=== PATIENT | female | born 1955 | race Caucasian/White ===

== ENCOUNTER → 2017-08-15 12:17 | Outpatient (CLI) | payer MEDICARE, OTHER, SELFPAY ==
[2017-08-15 12:55] LABS: BUN Creatinine Ratio 22.5 (6-22); Blood Urea Nitrogen 27 mg/dL (7-17); Calcium 9.2 mg/dL (8.4-10.2); Carbon Dioxide 27 mmol/L (22-32); Chloride 100 mmol/L (98-107); Estimated Glomerular Filt Rate 45.2 mL/min (>60); Glucose 189 mg/dL (80-110); HEMOLYSIS < 15 (0-50); Sodium 138 mmol/L (137-145)
--- NOTE | 2017-08-15 13:20 | DI.CT.S_ITS ---
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 TECHNIQUE: Optional 5 mm thick noncontrast images acquired from the diaphragm to the iliac crests. After the administration of intravenous contrast, 5 mm thick images again acquired from the diaphragm to the iliac crests in the arterial and urographic phases. 5 mm thick coronal and sagittal reformats were then acquired. For radiation dose reduction, the following was used: automated exposure control, adjustment of mA and/or kV according to patient size. COMPARISON: Outside Film, CT, CT ABDOMEN PELVIS WITH CONTRAST, 07/02/2017, 14:13. [facility], CT, ABDOMEN W&WO CONTRAST, 10/05/2016, 11:14. [facility], CT, ABDOMEN/PELVIS WITH CONTRAST, 03/29/2016, 13:17. [facility], CT, ABDOMEN/PELVIS WITH CONTRAST, 11/20/2012, 13:39. FINDINGS: Image quality: Metallic streak artifact from lumbar spine fixation hardware obscures adjacent bony and soft tissue structures. Lung bases: Lung bases are clear. Heart size is normal. Genitourinary: Both kidneys are normal in size, without hydronephrosis. 2 mm nonobstructing left renal stone is again noted. 1.9 cm exophytic left lateral renal cortical simple cyst is again noted, as well as 1.2 cm posterior exophytic right renal cortical cyst. On postcontrast images, amorphous nonenhancing irregular scar at the site of previous right superomedial renal mass is unchanged in appearance. Other solid organs: Liver is normal in size and enhancement. Gallbladder contains several small calcified gallstones. Biliary system is non dilated. Pancreas enhances normally. Spleen is normal in size and enhancement. No adrenal nodules. Peritoneum and bowel: Unenhanced bowel loops are normal in wall thickness and caliber. There is pancolonic diverticulosis. No free fluid or air. Nodes and vessels: No retroperitoneal or mesenteric adenopathy by size criteria. Aorta and inferior vena cava are normal in caliber. Bones: No suspicious bony lesions. No vertebral body compression fractures. Patient is status post L2-S1 bilateral posterior fixation and fusion, as well as multilevel lumbar spine laminectomies, L2-L3 discectomy with interbody fusion. There is grade one L4-L5 spondylolisthesis. Miscellaneous: There is small fat-containing periumbilical ventral hernia as before. IMPRESSION: 1. No findings to suggest local tumor recurrence at the site of superomedial right renal tumor ablation. 2. Several nonenhancing bilateral renal cortical simple cysts again noted, as well as nonobstructing 2 mm left renal stone. 3. [place] colonic diverticulosis. 4. Several small calcified gallstones again noted. 5. Small fat-containing periumbilical ventral hernia as before. Dictated by: Adan Aguiar M.D. on 08/15/2017 at 14:21 Approved by: Adan Aguiar M.D. on 08/15/2017 at 14:48
== END ==
PROVIDERS: PCP Internal Medicine; Visit Provider Urology
DX: N28.89 Other specified disorders of kidney and ureter (principal)
CPT/HCPCS: 36415; 74170; 80048; Q9967

== ENCOUNTER 2017-11-15 15:43 | Inpatient (IN) | payer MEDICARE, OTHER, SELFPAY ==
[2017-11-15] VITALS (7 sets, daily range): BP systolic 130–163; BP diastolic 61–109; PULSE 61–131; RESP 16–26; TEMP 36.3–36.4; O2SAT 98–99; BMI 32.4
--- NOTE | 2017-11-15 17:36 | DI.US.S_ITS ---
PROCEDURE: US ABDOMEN COMPLETE INDICATIONS: RIGHT UPPER QUADRANT PAIN TECHNIQUE: Real-time scanning was performed of the abdominal and retroperitoneal organs, with image documentation. COMPARISON: None. FINDINGS: Liver: Liver is normal in size and diffusely increased in echogenicity. Gallbladder: Cholelithiasis. Otherwise unremarkable. No sonographic Avery's sign per dial maker. Biliary ducts: Intrahepatic bile ducts are non-dilated. Extrahepatic bile duct caliber measures 5 mm. Pancreas: Not seen on this exam, obscured by overlying bowel gas. Spleen: Spleen is normal in size and homogeneous in echotexture. Measures 9.3 cm in greatest diameter. Kidneys: Kidneys are normal in size and echotexture. Right kidney measures 9.0 cm long; left kidney measures 10.2 cm long. No hydronephrosis or nephrolithiasis. There is a 2.2 x 2.0 x 2.2 cm oval hypoechoic exophytic focus arising from the left kidney with increased through transmission, consistent with a cyst. Aorta: Visualized aorta is normal in caliber. Mid abdominal aorta measures 1.6 cm. Distal abdominal aorta measures 1.4 cm. Proximal abdominal aorta not visualized on this exam. Iliacs: Not seen on this exam. IVC: Not well-seen on this exam. Miscellaneous: No free abdominal fluid. IMPRESSION: #1. Cholelithiasis. #2. Increased hepatic echogenicity, which can be seen with hepatic steatosis, hepatic fibrosis/cirrhosis, and/or hepatitis. #3. Probable 2.2 cm simple renal cyst arising from the left kidney. Consider followup ultrasound if there is continued clinical concern. Dictated by: Wilfrid Krueger M.D. on 11/15/2017 at 20:27 Approved by: Wilfrid Krueger M.D. on 11/15/2017 at 20:32
[2017-11-15 17:37] LABS: Add Manual Diff / Slide Review NO; Basophils Percent Auto 0.7 % (0-2); Eosinophils Percent Auto 0.2 % (2-4); Hematocrit 48.8 % (36-46); Hemoglobin 16.5 g/dL (12.0-16.0); Lymphocytes Percent Auto 12.6 % (25-40); Mean Corpuscular HGB Conc 33.9 % (30-36); Mean Corpuscular Hemoglobin 30.3 PG (26-34); Mean Corpuscular Volume 89.6 fL (80-100); Monocytes Percent Auto 7.4 % (3-14); Neutrophils Absolute Auto 12600 /uL (3000-5900); Neutrophils Percent Auto 79.1 % (50-75); Platelet Count 384 X10^3/uL (150-400); Red Blood Cell Count 5.45 X10^6/uL (4.0-5.2); Red Cell Distribution Width 14.7 % (11.6-14.8)
[2017-11-15 17:38] LABS: Prothrombin Time 11.4 SECONDS (10.1-12.7)
[2017-11-15 17:41] LABS: PTT Partial Thromboplastin Tim 30 SECONDS (26.4-36.2)
[2017-11-15 17:42] LABS: Alanine Aminotransferase 17 IU/L (9-52); Albumin 5.4 g/dL (3.5-5.0); Albumin Globulin Ratio 1.5 (1.0-2.8); Alkaline Phosphatase 76 U/L (38-126); Aspartate Aminotransferase 21 IU/L (14-36); Bilirubin Total 0.8 mg/dL (0.2-1.3); Blood Urea Nitrogen 18 mg/dL (7-17); Calcium 10.9 mg/dL (8.4-10.2); Carbon Dioxide 29 mmol/L (22-32); Chloride 92 mmol/L (98-107); Estimated Glomerular Filt Rate 28.3 mL/min (>60); Globulin 3.6 g/dL (1.7-4.1); Glucose 164 mg/dL (80-110); HEMOLYSIS < 15 (0-50); Lipase 1153 U/L (23-300); Potassium 3.8 mmol/L (3.4-5.1); Sodium 137 mmol/L (137-145)
[2017-11-15] MEDS: ONDANSETRON 4 MG/2 ML INJ IV (17:50)
[2017-11-15] MEDS: SODIUM CHLORIDE 0.9% 1,000 ML 1000 ML IV ×2 (18:38→21:24)
[2017-11-15] MEDS: HYDROMORPHONE 1 MG INJ IV (19:04)
--- NOTE | 2017-11-15 20:55 | ED_ITS ---
HPI - Abdominal Pain General Chief Complaint: Abdominal Pain Stated Complaint: Throwing up, thinks CDIFF Time Seen by Provider: 11/15/17 17:54 Source: patient and family Mode of arrival: ambulatory Limitations: no limitations History of Present Illness HPI narrative: 62-year-old female smoker with history of complicated C diff colitis presents with her and a chief complaint of 1 episode of loose stools last night and the presence of epigastric and right upper quadrant pain with nausea and vomiting over the course of yesterday and today. She denies alcohol abuse but states she has known gallstones. She has had 1 normal bowel movement today and denies the loose stools that are consistent with prior episodes of C diff. She has had 8 prior episodes of Clostridium difficile in most recently had been on oral vancomycin about 1 month ago per the patient. Her primary care provider sent her here for evaluation and possible transfer given her history of complicated C diff, apparently the patient has been evaluated for stool transplant in the past at [facility]. her pain is worse with motion and improves with rest. She denies radiation of her pain MD complaint: abdominal pain Onset (ago): hour(s) Pain Consistency: constant Location: epigastric Severity: moderate Quality: cramping and aching Radiation: none Migration to: no migration Relieving factors: rest Exacerbating factors: movement Associated symptoms: nausea and vomiting Related Data Home Medications Medication Instructions Recorded Confirmed simvastatin 40 mg PO Q DAY #0 03/29/16 11/15/17 Ambien 1 tab PO BEDTIME PRN 11/15/17 11/15/17 Probiotic 1 cap PO DAILY 11/15/17 11/15/17 glipizide 1 tab PO DAILY 11/15/17 11/15/17 ondansetron 8 mg PO TID PRN 11/15/17 11/15/17 oxycodone 1 tab PO QID MDD pain, severe 11/15/17 11/15/17 telmisartan [Micardis] 40 mg PO DAILY 11/15/17 11/15/17 Allergies Allergy/AdvReac Type Severity Reaction Status Date / Time adhesive tape [ADHESIVE TAPE] Allergy Unknown Verified 11/15/17 16:09 Opioids - Morphine Analogues Allergy Unknown Verified 11/15/17 16:09 [OPIOIDS - MORPHINE ANALOGUES] Review of Systems Review of Systems All systems reviewed & are unremarkable except as noted in HPI and below Constitutional Denies chills, Denies fever(s), Denies lethargy and Denies weakness Eyes Denies change in vision, Denies eye discharge, Denies irritation and Denies loss of vision ENT Ears, Nose, Mouth, and Throat: Denies change in voice, Denies neck pain and Denies sore throat Cardiovascular Denies chest pain, Denies irregular heart rhythm, Denies lightheadedness, Denies palpitations, Denies dyspnea, Denies dyspnea on exertion and Denies orthopnea Respiratory Denies cough, Denies dyspnea, Denies dyspnea on exertion and Denies wheezing Gastrointestinal Gastrointestinal: Reports abdominal pain, Denies change in bowel habits, Denies diarrhea, Reports nausea and Reports vomiting Genitourinary Denies hematuria, Denies flank pain, Denies urinary incontinence and Denies urinary urgency Musculoskeletal Denies neck pain Integumentary/Breasts Denies pruritus, Denies erythema, Denies rash and Denies wounds Neurologic Denies confusion, Denies loss of vision and Denies weakness Psychiatric Denies anxiety, Denies confusion, Denies depression, Denies homicidal ideation and Denies suicidal ideation Endocrine Denies palpitations Hematologic/Lymphatic Denies easy bruising Allergic/Immunologic Denies wheezing [facility] Social History Smoking Status: Current every day smoker Exam Narrative Exam Narrative: 62-year-old female appears to be in pain, clutching her upper abdomen Initial Vital Signs Initial Vital Signs: Vital Signs Temperature 97.5 F L 11/15/17 16:03 Pulse Rate 125 H 11/15/17 16:03 Respiratory Rate 22 11/15/17 16:03 Blood Pressure 162/109 H 11/15/17 16:03 Pulse Oximetry 98 11/15/17 16:03 Const General: cooperative, well developed and in distress Nutritional Appearance: well nourished Orientation: alert, awake, oriented x3 and not confused HENMT Head: normocephalic and atraumatic Ears: external ears normal and TM's normal bilaterally Nose: external nose normal and No nasal discharge Face and sinus: sinuses nontender, face symmetric, no sinus tenderness and No dry mucous membranes Mouth: oral mucosae normal and moist mucous membranes Teeth and gingiva: dentition normal Throat: tonsils normal and uvula midline Eyes General: appearance normal, both eyes and all related structures Eyelids: eyelids normal Conjunctivae: conjunctivae normal Sclera: sclerae normal Pupils: PERRL EOM: EOM intact bilaterally Neck Neck: normal visual inspection, trachea midline, No lymphadenopathy, No midline deformity and No JVD Lymphatic: No lymphedema Chest Chest: normal inspection of the chest Resp Effort & Inspection: normal respiratory effort, able to speak in complete sentences, no respiratory distress and no use of accessory muscles Auscultation: clear to auscultation bilaterally, no rales, no rhonchi and no wheezes Cardio Rate: regular rate Rhythm: regular rhythm Heart Sounds: no click, no gallops, no murmurs and no rubs Pulses: normal peripheral pulses GI Inspection: non-distended Palpation: soft, no hepatosplenomegaly, No guarding, No pulsatile mass and tender ( in her epigastrium and right upper quadrant) Auscultation: normal bowel sounds Back/Spine/Pelvis Back: No CVA tenderness Cervical Spine: cervical ROM normal and No pain with cervical ROM Thoracic/Lumbar Spine: thoracic and lumbar spine normal to inspection Skin General: no rashes or lesions noted, No jaundice and No petechiae Neuro General: alert, oriented x3, gait normal and no focal motor deficits Speech: speech normal Extrem General: full ROM, no clubbing, cyanosis or edema, no pedal edema and no calf tenderness Psych Appearance: well kempt Mental Status: mental status grossly normal Attitude: cooperative Thought Content: normal and suicidality Judgment: judgment good Course Decision to Admit Date: 11/15/17 Decision to Admit time: 22:27 Orders Ordered: ED Orders 11/15/17 17:20 Complete Blood Count AUTO DIFF Stat Comprehensive Metabolic Panel Stat Lipase Stat Partial Thromboplastin Time Stat Prothrombin Time INR Stat 11/15/17 17:28 EKG-12 Lead Stat 11/15/17 17:36 US abdomen complete Urgent 11/15/17 18:42 Clostridium Difficile Tox PCR Stat Sodium Chloride (Normal Saline 0.9%) 1,000 mls @ 150 mls/hr IV CONT E[place] Last Admin: 11/15/17 22:43 Dose: 150 mls/hr Discontinued Medications Hydromorphone HCl (Dilaudid) 1 mg IV NOW ONE Stop: 11/15/17 18:43 Last Admin: 11/15/17 19:04 Dose: 1 mg Sodium Chloride (Normal Saline 0.9%) 1,000 mls @ 1,000 mls/hr IV BOLUS ONE Stop: 11/15/17 19:30 Last Infusion: 11/15/17 20:07 Dose: 0 mls/hr Admin: 11/15/17 18:38 Dose: 1,000 mls/hr Sodium Chloride (Normal Saline 0.9%) 1,000 mls @ 1,000 mls/hr IV BOLUS ONE Stop: 11/15/17 21:55 Last Infusion: 11/15/17 22:43 Dose: 0 mls/hr Admin: 11/15/17 21:24 Dose: 1,000 mls/hr Ondansetron HCl (Zofran) 4 mg IV NOW ONE Stop: 11/15/17 17:28 Last Admin: 11/15/17 17:50 Dose: 4 mg Reevaluation(s) Reevaluation #1: patient has been here multiple hours and still had no bowel movement. Reevaluation #2: call to /[facility] regarding hx of consult there with possible fecal transplant in the future. They have no available beds and med service is capped Consultations Consultation #1: Dr. Kee is happy to accept the patient on her service Time: 23:00 Vital Signs - 8 hr 11/15/17 16:03 11/15/17 17:06 11/15/17 19:50 Temperature 97.5 F L 97.3 F L Pulse Rate 125 H 131 H 94 H Respiratory Rate 22 26 H 18 Blood Pressure 162/109 H Blood Pressure [Left Arm] 142/99 H 163/100 H Pulse Oximetry 98 99 98 11/15/17 20:20 11/15/17 20:50 11/15/17 22:00 Temperature Pulse Rate 89 85 61 Respiratory Rate 18 18 16 Blood Pressure Blood Pressure [Left Arm] 156/95 H 140/83 130/61 Pulse Oximetry 98 98 MDM - Abdominal Pain Lab Data Result diagrams: 11/15/17 17:20 11/15/17 17:20 Lab Results 11/15/17 11/15/17 11/15/17 Range/Units 17:20 17:20 17:20 WBC 16.0 H (4.5-11.0) X10^3/uL RBC 5.45 H (4.0-5.2) X10^6/uL Hgb 16.5 H (12.0-16.0) g/dL Hct 48.8 H (36-46) % MCV 89.6 (80-100) fL MCH 30.3 (26-34) PG MCHC 33.9 (30-36) % RDW 14.7 (11.6-14.8) % Plt Count 384 (150-400) X10^3/uL Neut % (Auto) 79.1 H (50-75) % Lymph % (Auto) 12.6 L (25-40) % [place] % (Auto) 7.4 (3-14) % Eos % (Auto) 0.2 L (2-4) % Baso % (Auto) 0.7 (0-2) % Neut # (Auto) 11413 H (2310-1330) /uL PT 11.4 (10.1-12.7) SECONDS INR 1.0 (0.9-1.3) APTT 30 (26.4-36.2) SECONDS Sodium 137 (137-145) mmol/L Potassium 3.8 (3.4-5.1) mmol/L Chloride 92 L (98-107) mmol/L Carbon Dioxide 29 (22-32) mmol/L BUN 18 H (7-17) mg/dL Creatinine 1.80 H (0.52-1.04) mg/dL Estimated GFR 28.3 L (>60) mL/min BUN/Creatinine Ratio 10.0 (6-22) Glucose 164 H (80-110) mg/dL Calcium 10.9 H (8.4-10.2) mg/dL Total Bilirubin 0.8 (0.2-1.3) mg/dL AST 21 (14-36) IU/L ALT 17 (9-52) IU/L Alkaline Phosphatase 76 (38-126) U/L Total Protein 9.0 H (6.3-8.2) g/dL Albumin 5.4 H (3.5-5.0) g/dL Globulin 3.6 (1.7-4.1) g/dL Albumin/Globulin Ratio 1.5 (1.0-2.8) Lipase 1153 H (23-300) U/L Discharge Plan Departure Patient Disposition: Admitted As Inpatient Clinical Impression: Acute pancreatitis
[2017-11-15] MEDS: SODIUM CHLORIDE 0.9% 1,000 ML 150 ML IV (22:43)
[2017-11-16] VITALS (12 sets, daily range): BP systolic 125–201; BP diastolic 62–104; PULSE 70–101; RESP 14–20; TEMP 36.4–37.3; O2SAT 94–98; BMI 32.4
--- NOTE | 2017-11-16 01:12 | PC.NURSE ---
Computer Compositor Note: 0030: Admitted at 0025 to acute care room 211. Pt was able to walk from stretcher to bed using cane; steady on her feet. Alert, oriented X3. Pt is allergic to tape adhesive: IV secured with tegaderm and stretch sleeve. IV in place in rt AC, and NS started at this time at 150cc/hr. Pt states she has chronic back pain, and has had back surgery in the past. She states she is also having abdominal pain. She rates her back pain as 6/10.
[2017-11-16] MEDS: SODIUM CHLORIDE 0.9% 1,000 ML 125 ML IV (01:17)
[2017-11-16] MEDS: ONDANSETRON 4 MG/2 ML INJ IV ×4 (04:14→22:30)
[2017-11-16 06:18] LABS: Hematocrit 41.7 % (36-46); Mean Corpuscular HGB Conc 33.6 % (30-36); Mean Corpuscular Volume 89.3 fL (80-100); Platelet Count 270 X10^3/uL (150-400); Red Blood Cell Count 4.67 X10^6/uL (4.0-5.2); Red Cell Distribution Width 14.5 % (11.6-14.8); White Blood Cell Count 11.2 X10^3/uL (4.5-11.0)
[2017-11-16] MEDS: HYDROMORPHONE PCA 6 MG/30 ML PCA.VIAL IV ×3 (06:25→21:04)
[2017-11-16 06:27] LABS: Blood Urea Nitrogen 18 mg/dL (7-17); Calcium 10.1 mg/dL (8.4-10.2); Carbon Dioxide 29 mmol/L (22-32); Chloride 99 mmol/L (98-107); Estimated Glomerular Filt Rate 55.8 mL/min (>60); Glucose 145 mg/dL (80-110); HEMOLYSIS < 15 (0-50); Magnesium 1.7 mg/dL (1.6-2.3); Potassium 3.4 mmol/L (3.4-5.1); Sodium 138 mmol/L (137-145)
[2017-11-16] MEDS: PANTOPRAZOLE 40 MG VIAL 20 MG IV ×2 (06:28→21:03)
[2017-11-16 06:59] LABS: Neutrophils Absolute Manual 8176 /uL (3000-5900); RBC Morphology Normal Morphology; Total Cells Counted 100
[2017-11-16] MEDS: LABETALOL 100 MG/20ML MDV 10 MG IV (08:11)
--- NOTE | 2017-11-16 08:39 | PM.HP.1 ---
History of Present Illness Date Patient Seen: 11/16/17 Time Patient Seen: 08:42 Chief complaint: Throwing up, thinks CDIFF Narrative: 62-year-old female with past medical history of diabetes, hypertension, recurrent C diff colitis -8 times, hyperlipidemia presented to the ED with abdominal pain and 1 episode of nonbloody nonbilious. Patient states the pain came on suddenly 1 day prior to admission, started out in the right mid quadrant, however progressed to the back. Pain is sharp, 9/10 severity, and associated with extreme nausea, with 1 episode of nonbilious nonbloody vomitus prior to admission. Patient denied any loss of consciousness, blurry vision, dizziness. Patient denied any headaches. Patient denied any cough, sore throat, shortness of breath, chest pain. Patient has chronic acid reflux for which she takes Zantac. Patient denied any symptoms. Patient does not drink alcohol, and has never been diagnosed with gallstones. Of note patient has been diagnosed with C diff colitis 810 in the past, with the most recent 1 month ago, for which she received vancomycin p.o.. Patient is scheduled to receive stool transplant within the next month at the [facility]. Currently patient complains of severe nausea. No more episodes of diarrhea since admission. In ED, patient was found to be afebrile. Vital signs were significant for high blood pressure of 162/109. Lab work revealed leukocytosis of 16.0, hemoglobin 16.5, platelets 384. CMP revealed sodium 138, potassium 3.4, chloride 99, bicarb 29. BUN was 18, creatinine 1.8. Glucose was 145, and lipase was 1153. CT of the abdomen revealed several non enhancing bilateral renal simple cysts, pancolonic diverticulosis, small gallstones, and periumbilical ventral hernia. Abdominal ultrasound revealed cholelithiasis, increased hepatic echogenicity, and simple renal cyst. Patient was admitted to acute care unit for management of acute pancreatitis. Patient History Medical History Diabetes (Acute) C. difficile colitis (Chronic) HLD (hyperlipidemia) (Chronic) HTN (hypertension) (Chronic) Pancreatitis (Resolved) Family & Social History Safety & Behavioral: Feels Safe in Current Yes Environment Tobacco & Substance use: Smoking Status Current every day smoker alcohol intake frequency 0-2 drinks per day Substance Use Type occasional marijuana use Meds Home Medications Medication Instructions Recorded Confirmed Type simvastatin 40 mg PO Q DAY #0 03/29/16 11/15/17 History Ambien 1 tab PO BEDTIME PRN 11/15/17 11/15/17 History Probiotic 1 cap PO DAILY 11/15/17 11/15/17 History glipizide 1 tab PO DAILY 11/15/17 11/15/17 History ondansetron 8 mg PO TID PRN 11/15/17 11/15/17 History oxycodone 1 tab PO QID MDD pain, severe 11/15/17 11/15/17 History telmisartan [Micardis] 40 mg PO DAILY 11/15/17 11/15/17 History Allergies Allergy/AdvReac Type Severity Reaction Status Date / Time adhesive tape [ADHESIVE TAPE] Allergy Unknown Verified 11/15/17 16:09 Opioids - Morphine Analogues Allergy Unknown Verified 11/15/17 16:09 [OPIOIDS - MORPHINE ANALOGUES] Review of Systems Review of Systems All systems reviewed & are unremarkable except as noted in HPI and below Exam Vital Signs (past 8 hours): - 11/16/17 01:31 11/16/17 04:52 Temperature 99.0 F 98.4 F Pulse Rate 78 75 Respiratory Rate 18 18 Blood Pressure 185/104 H 150/103 H Pulse Oximetry 97 98 Oxygen Delivery Method Room Air Narrative Exam Narrative: General: Moderate distress, AAOx3 HEENT: PERRLA BL Neck: Supple, no LAD CV: RRR, no murmurs Resp: CTA BL, no wheezing GI: Soft, +BS, no organomegally. No tenderness to palpation-patient states pain is more deep. MSK: Moves all extremities BL Skin: no rashes, lesions Neuro: NFD Psych: Appropriate mood Objective Labs Result Diagrams: 11/16/17 05:47 11/16/17 05:47 Labs: Laboratory Results - last 24 hr 11/15/17 11/15/17 11/15/17 17:20 17:20 17:20 WBC 16.0 H RBC 5.45 H Hgb 16.5 H Hct 48.8 H MCV 89.6 MCH 30.3 MCHC 33.9 RDW 14.7 Plt Count 384 Neut % (Auto) 79.1 H Lymph % (Auto) 12.6 L [place] % (Auto) 7.4 Eos % (Auto) 0.2 L Baso % (Auto) 0.7 Neut # (Auto) 54464 H Total Counted Seg Neutrophils % Lymphocytes % (Manual) Monocytes % (Manual) Neutrophils # (Manual) RBC Morphology PT 11.4 INR 1.0 APTT 30 Sodium 137 Potassium 3.8 Chloride 92 L Carbon Dioxide 29 BUN 18 H Creatinine 1.80 H Estimated GFR 28.3 L BUN/Creatinine Ratio 10.0 Glucose 164 H Calcium 10.9 H Magnesium Total Bilirubin 0.8 AST 21 ALT 17 Alkaline Phosphatase 76 Total Protein 9.0 H Albumin 5.4 H Globulin 3.6 Albumin/Globulin Ratio 1.5 Lipase 1153 H 11/16/17 11/16/17 05:47 05:47 WBC 11.2 H RBC 4.67 Hgb 14.0 Hct 41.7 MCV 89.3 MCH 30.0 MCHC 33.6 RDW 14.5 Plt Count 270 Neut % (Auto) Lymph % (Auto) [place] % (Auto) Eos % (Auto) Baso % (Auto) Neut # (Auto) Total Counted 100 Seg Neutrophils % 73.0 H Lymphocytes % (Manual) 19.0 L Monocytes % (Manual) 8.0 Neutrophils # (Manual) 8176 H RBC Morphology Normal morphology PT INR APTT Sodium 138 Potassium 3.4 Chloride 99 Carbon Dioxide 29 BUN 18 H Creatinine 1.00 Estimated GFR 55.8 L BUN/Creatinine Ratio 18.0 Glucose 145 H Calcium 10.1 Magnesium 1.7 Total Bilirubin AST ALT Alkaline Phosphatase Total Protein Albumin Globulin Albumin/Globulin Ratio Lipase Assessment & Plan Plan: Assessment/Plan Narrative: 62-year-old female with past medical history of diabetes, hypertension, recurrent C diff colitis -8 times, hyperlipidemia presented to the ED with abdominal pain and 1 episode of nonbloody nonbilious. She was found to have acute Pancreatitis and is transferred to floors for further management. 1. Acute Pancreatitis - Possibly due to Statin and ACEI Use - Lipase 1153 - Abd CT and US revealed cholelithiasis but no cholechledolithiathis or dilation of bile ducts- no evidence of obstruction. Patient is not an alcohol user - Triglycerides 175-not significantly elevated to cause pancreatitis - Continue IVF, NPO, zofran, and pain control - Will likely need medication reassessment on discharge 2. Hx of Recurrent CDiff - Scheduled for stool transplant in one month - Pending CDiff PCR to rule out acute infection and on enteric precautions 3. HTN - BP consistently elevated - Continue Labetalol IV pushes as patient is NPO at this time 4. DM - Patient is on glipizide at home - Will hold home medications at this time and start on sliding scale - accuchecks, hypoglycemia protocol 5. HLD - Continue to hold statin as it might be the cause of pancreatitis DVT PPx with Lovenox subQ
--- NOTE | 2017-11-16 09:41 | PC.NURSE ---
Elevated blood pressure noted with am vital signs. Patient also complaining of nausea with retching again, and acid stomach. Placed on telemetry during first dose of labetolol administration per protocol, Sinus rhythm per MOBILE BATTERY TECHNICIAN. Patient tolerated well and BP now 125/62 with HR 89 while sleeping. Zofran was given with good effect and patient able to rest. Bed alarm on for safety, with call light within reach.
[2017-11-16] MEDS: DEXTROSE 5%-0.9% NS 1,000 ML 150 ML IV ×2 (09:49→16:08)
[2017-11-16] MEDS: INSULIN ASPART 100 UNIT/ML INSULN PEN SUBCUT ×2 (13:49→18:54)
--- NOTE | 2017-11-16 16:09 | CM.IDA ---
Pt sleeping soundly upon this HEATING AND AIR CONDITIONING MECHANIC's arrival to room. RN suggests another time since pt had an uncomfortable night and day today. Home is expected. Follow for further assess of DC needs. WEN Reilly Discharge Planning/Care Management CM Discharge Assessment Start: 11/16/17 16:04 Freq: Status: Active Protocol: Document 11/16/17 16:04 AUDREY (Rec: 11/16/17 16:09 AUDREY [id number]) Discharge Planning Assessment Assigned Golf Range Attendant WEN Byrnes DPOA/Assigned Designee Name Vadim Don, spouse Contact Information [phone], home Advance Directives? No Advance Directives on File No History Provided By Patient Prior Living Arrangements House Household Members spouse Type of transporation used prior to Drives own vehicle admit Independent with ADL's Yes Is patient alert and oriented? Yes Barriers to Discharge No Comment Likely none once medically stable and pain under control. Discharge Plan Home Transportation Arrangement Spouse Referrals Initiated None needed Additional Comment Further assessment needed. Review Status In Process
--- NOTE | 2017-11-16 16:23 | PC.NURSE ---
Addendum entered by Alyssa Burt R.N. 11/16/17 18:58: pt in for a bit, educated about isolation precautions. Pt awake, up to br for void. no bm at this time. gown and linens changed as pt had been very sweaty. Pt uses call light. has not yet used Dilaudid loading and unloading supervisor. encouraged as pt grimaces with movement. Pt holds tummy. stretching machine tender frame. given zofran prn. pt tolerated. Pt uses call light. pt updated on plan of care, cannot have anything by mouth. will continue to monitor. Original Note: assumed care of pt from outgoing shift. pt asleep at this time. will continue to monitor. bed alarm on, side rails upx3. belongings and call light within reach.
[2017-11-17] VITALS (8 sets, daily range): BP systolic 149–186; BP diastolic 84–103; PULSE 65–74; RESP 16–20; TEMP 36.2–37.3; O2SAT 94–99
[2017-11-17] MEDS: DEXTROSE 5%-0.9% NS 1,000 ML 150 ML IV ×3 (00:37→14:07)
[2017-11-17] MEDS: ONDANSETRON 4 MG/2 ML INJ IV ×4 (02:59→18:29)
[2017-11-17 06:07] LABS: Add Manual Diff / Slide Review NO; Basophils Percent Auto 0.8 % (0-2); Eosinophils Percent Auto 1.2 % (2-4); Hemoglobin 12.6 g/dL (12.0-16.0); Lymphocytes Percent Auto 23.4 % (25-40); Mean Corpuscular HGB Conc 34.1 % (30-36); Mean Corpuscular Hemoglobin 30.5 PG (26-34); Mean Corpuscular Volume 89.3 fL (80-100); Monocytes Percent Auto 7.1 % (3-14); Neutrophils Absolute Auto 5300 /uL (3000-5900); Neutrophils Percent Auto 67.5 % (50-75); Platelet Count 241 X10^3/uL (150-400); Red Blood Cell Count 4.14 X10^6/uL (4.0-5.2); Red Cell Distribution Width 14.1 % (11.6-14.8); White Blood Cell Count 7.8 X10^3/uL (4.5-11.0)
[2017-11-17] MEDS: INSULIN ASPART 100 UNIT/ML INSULN PEN SUBCUT ×3 (06:08→18:29)
[2017-11-17 06:11] LABS: BUN Creatinine Ratio 13.8 (6-22); Blood Urea Nitrogen 11 mg/dL (7-17); Calcium 8.6 mg/dL (8.4-10.2); Carbon Dioxide 25 mmol/L (22-32); Chloride 105 mmol/L (98-107); Estimated Glomerular Filt Rate > 60.0 mL/min (>60); Glucose 165 mg/dL (80-110); HEMOLYSIS < 15 (0-50); Sodium 138 mmol/L (137-145)
[2017-11-17] MEDS: HYDROMORPHONE PCA 6 MG/30 ML PCA.VIAL IV ×3 (06:13→21:35)
--- NOTE | 2017-11-17 06:44 | PC.NURSE ---
Pt is AxOx3, very pleasant lady. NPO. IVF running. Dilaudid ROUGE PRESSER running, used 1.6mg total for shift, mostly complains of back pain. Patient had some questions on pancreatitis, I printed out some material for her to read about it and explained it to her. Patient also wanted to know her Lipase level so I called Dr. Kee and we added that lab and results are currently pending. Patient complains of nausea thats relieved with Zofran. Independent upon ambulation. No BM to collect any stool sample for C-Diff testing. FS q6h.
[2017-11-17 06:50] LABS: Lipase 23 U/L (23-300)
[2017-11-17] MEDS: PANTOPRAZOLE 40 MG VIAL 20 MG IV ×2 (09:13→21:36)
[2017-11-17] MEDS: ENOXAPARIN 40 MG/0.4 ML SYRINGE SUBCUT (09:14)
--- NOTE | 2017-11-17 10:21 | PC.NURSE ---
AM NOTE - pt is alert, talkative, on/off nausea at times, req zofran, 4mg admin, + bt, passing some flatus, non destructive evaluation manager dilaudid 0.2/10/6mg managing chronic back and abd discomfort, ra 99%, hr reg 68.
[2017-11-17] MEDS: LABETALOL 100 MG/20ML MDV 10 MG IV (11:48)
[2017-11-17 13:51] LABS: Magnesium 1.8 mg/dL (1.6-2.3)
[2017-11-17] MEDS: MAGNESIUM SULFATE 2 GM/50 ML PIGGYBACK IV (14:08)
[2017-11-17] MEDS: POTASSIUM CHLORIDE 40 MEQ in SODIUM CHLORIDE 0.9% 500 ML 75 ML IV (16:21)
--- NOTE | 2017-11-17 17:59 | P.PN_ITS ---
Subjective Date Patient Seen: 11/17/17 Time Patient Seen: 11:55 Interval history: History of present illness Patient ended with acute pancreatitis. Follow-up lipase level in normal range Low potassium and magnesium levels noted and replaced accordingly Review of systems Patient still complaining of quite a bit of abdominal discomfort. No chest pain or shortness of breath Exam Vital Signs (past 8 hours): - 11/17/17 12:00 11/17/17 15:45 11/17/17 15:50 Temperature 97.7 F 97.2 F L Pulse Rate 74 74 Respiratory Rate 18 18 Blood Pressure 186/103 H 169/90 H Pulse Oximetry 96 99 98 Oxygen Delivery Method Room Air Oxygen Flow Rate 0 Narrative Exam Narrative: General appearance patient is noted with moderate distress related to the abdominal pain awake and alert Psychiatric well oriented time place person mood is stressed due to the abdominal pain affect is appropriate Skin no rashes or lesions nonjaundiced good turgor Respiratory failure clear to auscultation no wheezes no crackles Cardiovascular regular rate rhythm no murmurs PMI nondisplaced pulses +3 to extremities GI tenderness noted to the abdominal region to the epigastric and left upper quadrant on palpation positive bowel sounds are noted abdomen is soft Neurologic.. no focal neurologic changes cranial nerves 2-12 grossly intact Objective Labs Result Diagrams: 11/17/17 05:36 11/17/17 05:36 Labs: Laboratory Results - last 24 hr 11/17/17 11/17/17 11/17/17 05:36 05:36 05:36 WBC 7.8 RBC 4.14 Hgb 12.6 Hct 37.0 MCV 89.3 MCH 30.5 MCHC 34.1 RDW 14.1 Plt Count 241 Neut % (Auto) 67.5 Lymph % (Auto) 23.4 L Sunflower % (Auto) 7.1 Eos % (Auto) 1.2 L Baso % (Auto) 0.8 Neut # (Auto) 5300 Sodium 138 Potassium 3.0 L Chloride 105 Carbon Dioxide 25 BUN 11 Creatinine 0.80 Estimated GFR > 60.0 BUN/Creatinine Ratio 13.8 Glucose 165 H Calcium 8.6 Magnesium 1.8 Lipase 23 D Assessment & Plan Plan: Assessment/Plan Narrative: 1. Acute Pancreatitis - suspected due to gallstones that appeared to have passed by the time imaging was conducted. Patient is not an alcoholic. No elevated triglyceride levels - Lipase 1153 - Abd CT and US revealed cholelithiasis but no cholechledolithiathis or dilation of bile ducts- no evidence of obstruction. - analgesic therapy as needed 2. Hx of Recurrent CDiff - Scheduled for stool transplant in one month - Pending CDiff PCR to rule out acute infection and on enteric precautions 3. HTN - BP elevated - Labetalol IV as needed until oral intake is noted 4. DM - Patient is normally on glipizide in home setting. - glipizide being held and insulin sliding scale provided as needed 5. HLD - statin held at this time Time Spent With Patient Time with patient: 25 - 35 minutes (25 min)
--- NOTE | 2017-11-17 20:45 | PC.NURSE ---
Addendum entered by Alyssa Burt R.N. 11/17/17 21:49: pt asleep, arouses to voice, compliant with med pass. bed alarm on. side rails upx3. will continue to monitor. Original Note: Assumed care of pt from outgoing shift today. Pt awake and alert. compliant with nursing assessment. potassium started and pt tolerating. states she is not having any pain. rubbed pt's back with lotion and pt ambulates steady gait to br. Pt uses call light and waits for assistance. 1899- stool sample collected and sent to lab- specimen rejected as it was not watery- md notified and pt taken off precautions. Pt bed alarm on. isde rails upx3. will continue to monitor.
[2017-11-18] VITALS (7 sets, daily range): BP systolic 134–158; BP diastolic 79–102; PULSE 63–82; RESP 18–22; TEMP 36.3–37.3; O2SAT 96–99
[2017-11-18] MEDS: DEXTROSE 5%-0.9% NS 1,000 ML 150 ML IV ×2 (03:24→17:06)
[2017-11-18] MEDS: INSULIN ASPART 100 UNIT/ML INSULN PEN SUBCUT ×3 (05:50→19:39)
[2017-11-18] MEDS: HYDROMORPHONE PCA 6 MG/30 ML PCA.VIAL IV (05:52)
--- NOTE | 2017-11-18 05:53 | PC.NURSE ---
Addendum entered by Florina Montero R.N. 11/18/17 05:56: Patient stated the sweating isn't abnormal for her, and that she goes through periods where she sweats intensely like this. Original Note: Patient much more lethargic this shift, arousable but slept throughout shift. Patient's gown was changed twice because of how much she sweat. No fever present, no chills noted. INJECTION MOLDING OPERATOR pump not used for shift. IVF running as ordered. FS q6h within normal ranges and given 1unit this AM.
[2017-11-18 06:42] LABS: Hematocrit 40.5 % (36-46); Hemoglobin 13.6 g/dL (12.0-16.0); Mean Corpuscular HGB Conc 33.7 % (30-36); Mean Corpuscular Hemoglobin 30.4 PG (26-34); Mean Corpuscular Volume 90.3 fL (80-100); Platelet Count 249 X10^3/uL (150-400); Red Blood Cell Count 4.49 X10^6/uL (4.0-5.2); Red Cell Distribution Width 14.2 % (11.6-14.8); White Blood Cell Count 6.4 X10^3/uL (4.5-11.0)
[2017-11-18 06:46] LABS: Alanine Aminotransferase 17 IU/L (9-52); Albumin 3.7 g/dL (3.5-5.0); Albumin Globulin Ratio 1.5 (1.0-2.8); Alkaline Phosphatase 45 U/L (38-126); Aspartate Aminotransferase 12 IU/L (14-36); BUN Creatinine Ratio 7.1 (6-22); Bilirubin Total 0.5 mg/dL (0.2-1.3); Blood Urea Nitrogen 5 mg/dL (7-17); Calcium 8.7 mg/dL (8.4-10.2); Carbon Dioxide 25 mmol/L (22-32); Chloride 104 mmol/L (98-107); Estimated Glomerular Filt Rate > 60.0 mL/min (>60); Globulin 2.4 g/dL (1.7-4.1); Glucose 161 mg/dL (80-110); HEMOLYSIS < 15 (0-50); Potassium 3.2 mmol/L (3.4-5.1); Sodium 140 mmol/L (137-145); Total Protein 6.1 g/dL (6.3-8.2)
[2017-11-18 06:54] LABS: Lipase 30 U/L (23-300)
[2017-11-18] MEDS: HYDROMORPHONE 1 MG INJ IV ×2 (06:55→15:40)
[2017-11-18 07:08] LABS: Neutrophils Absolute Manual 4160 /uL (3000-5900); Total Cells Counted 100
[2017-11-18 07:09] LABS: RBC Morphology Normal Morphology
[2017-11-18] MEDS: ENOXAPARIN 40 MG/0.4 ML SYRINGE SUBCUT (08:16)
[2017-11-18] MEDS: PANTOPRAZOLE 40 MG VIAL 20 MG IV ×2 (08:16→20:19)
--- NOTE | 2017-11-18 09:15 | CM.DPC ---
DCP/Continued: Reviewed chart on 11-17-17. Met with patient to have initial TANNER signed. Patient's reports that she uses cane at baseline and hopes to go home soon. Patient resides in 1 story home and does not anticipate having any needs. STAGE SETTINGS PAINTER updated MD in AM rounds. Patient reports that she has not been out of bed much. PT primarily has been I therefore, PT evaluation not considered at this time. MD to discuss with patient and [facility] staff about allowing patient to be more active in room. Patient currently under C-diff precautions. Patient's spouse is Vadim his correct phone number is [phone]. STAGE SETTINGS PAINTER left vm message at patient's residence/number above per patient's request asking for him to call her in room. P: Home when stable. Continue to follow closely. Consider PT evaluation if patient remains hospitalized. WEN Vaughn
[2017-11-18] MEDS: ONDANSETRON 4 MG/2 ML INJ IV (15:32)
--- NOTE | 2017-11-18 19:38 | P.PN_ITS ---
Subjective Date Patient Seen: 11/18/17 Time Patient Seen: 17:34 Interval history: History of present illness Follow-up on acute pancreatitis suspected secondary to cholelithiasis Chronic debilitating back pain related to prior surgery with hardware. Review of system No chest pain or shortness of breath decreased abdominal pain noted What seems to over shadow patient is the pain in her back that is chronic in nature Exam Vital Signs (past 8 hours): - 11/18/17 11:50 11/18/17 15:00 11/18/17 15:58 Temperature 97.3 F L 98.2 F Pulse Rate 76 63 Respiratory Rate 18 19 Blood Pressure 158/102 H 134/79 Pulse Oximetry 98 99 96 Oxygen Delivery Method Room Air Oxygen Flow Rate 0 Narrative Exam Narrative: General appearance patient is awake alert with moderate distress related to the pain primarily in the lower back region Psychiatric well oriented to time place person mood is stress related to the back pain primarily affect is appropriate Skin no rashes or lesions nonjaundiced Respiratory fairly clear to auscultation no wheezes crackles Cardiovascular regular rate rhythm no murmurs PMI nondisplaced +3 pulses to extremities GI S tenderness noted to the epigastric region on palpation though still point tender positive bowel sounds are noted no guarding abdomen fairly soft Neurologic no focal neurologic change cranial nerves 2-12 grossly intact Musculoskeletal 5/5 motor strength no clubbing noted range of motion appears normal Objective Labs Result Diagrams: 11/18/17 06:20 11/18/17 06:04 Labs: Laboratory Results - last 24 hr 11/18/17 11/18/17 11/18/17 06:04 06:20 06:20 WBC 6.4 RBC 4.49 Hgb 13.6 Hct 40.5 MCV 90.3 MCH 30.4 MCHC 33.7 RDW 14.2 Plt Count 249 Total Counted 100 Seg Neutrophils % 65.0 Lymphocytes % (Manual) 25.0 Atypical Lymphs % 2.0 H Monocytes % (Manual) 4.0 Eosinophils % (Manual) 3.0 Basophils % (Manual) 1.0 Neutrophils # (Manual) 4160 RBC Morphology Normal morphology Sodium 140 Potassium 3.2 L Chloride 104 Carbon Dioxide 25 BUN 5 L Creatinine 0.70 Estimated GFR > 60.0 BUN/Creatinine Ratio 7.1 Glucose 161 H Calcium 8.7 Total Bilirubin 0.5 AST 12 L ALT 17 Alkaline Phosphatase 45 Total Protein 6.1 L Albumin 3.7 Globulin 2.4 Albumin/Globulin Ratio 1.5 Lipase 30 Assessment & Plan Plan: Assessment/Plan Narrative: Acute Pancreatitis - suspected due to gallstones that appeared to have passed by the time imaging was conducted. Patient is not an alcoholic. No elevated triglyceride levels - Lipase 1153 with normal lipase levels on November 17 and November 18 - Abd CT and US revealed cholelithiasis but no cholechledolithiathis or dilation of bile ducts- no evidence of obstruction. - analgesic therapy as needed. Stopped the Dilaudid LOGISTICS OPERATIONS MANAGER pump in a.m. on November 18 Will start a full liquid diet on November 18 and advance as tolerated 2. Hx of Recurrent CDiff - Scheduled for stool transplant in one month - Pending CDiff PCR to rule out acute infection and on enteric precautions 3. HTN - BP elevated - Labetalol IV as needed until oral intake is noted 4. DM - Patient is normally on glipizide in home setting. - glipizide being held and insulin sliding scale provided as needed 5. Chronic back pain As discussed with patient we will start Elavil at 35 mg at bedtime As discussed with patient will start Cymbalta at 30 mg daily As discussed with patient will start Lyrica at 75 mg p.o. b.i.d. for the neuropathic pain Time Spent With Patient Time with patient: Greater than 35 minutes (25 min)
[2017-11-18] MEDS: AMITRIPTYLINE 25 MG TABLET PO (20:15)
[2017-11-18] MEDS: AMITRIPTYLINE 10 MG TABLET PO (20:15)
[2017-11-18] MEDS: PREGABALIN 75 MG CAPSULE PO (20:21)
[2017-11-19] VITALS (11 sets, daily range): BP systolic 128–191; BP diastolic 74–116; PULSE 58–76; RESP 14–20; TEMP 35.6–37.3; O2SAT 92–98
[2017-11-19] MEDS: DEXTROSE 5%-0.9% NS 1,000 ML 150 ML IV ×2 (00:05→06:38)
[2017-11-19] MEDS: LABETALOL 100 MG/20ML MDV 10 MG IV ×2 (05:22→14:58)
[2017-11-19 06:33] LABS: Add Manual Diff / Slide Review NO; Basophils Percent Auto 0.8 % (0-2); Eosinophils Percent Auto 3.1 % (2-4); Hemoglobin 13.6 g/dL (12.0-16.0); Lymphocytes Percent Auto 33.4 % (25-40); Mean Corpuscular HGB Conc 33.9 % (30-36); Mean Corpuscular Hemoglobin 30.5 PG (26-34); Mean Corpuscular Volume 89.9 fL (80-100); Neutrophils Absolute Auto 3700 /uL (3000-5900); Neutrophils Percent Auto 55.7 % (50-75); Platelet Count 235 X10^3/uL (150-400); Red Blood Cell Count 4.45 X10^6/uL (4.0-5.2); Red Cell Distribution Width 13.9 % (11.6-14.8); White Blood Cell Count 6.6 X10^3/uL (4.5-11.0)
[2017-11-19] MEDS: ONDANSETRON 4 MG/2 ML INJ IV ×2 (06:38→20:43)
[2017-11-19] MEDS: HYDROMORPHONE 0.5 MG INJ IV (06:38)
[2017-11-19 06:44] LABS: Alanine Aminotransferase 15 IU/L (9-52); Albumin 3.7 g/dL (3.5-5.0); Albumin Globulin Ratio 1.6 (1.0-2.8); Alkaline Phosphatase 44 U/L (38-126); Aspartate Aminotransferase 13 IU/L (14-36); BUN Creatinine Ratio 5.7 (6-22); Bilirubin Total 0.5 mg/dL (0.2-1.3); Blood Urea Nitrogen 4 mg/dL (7-17); Calcium 8.9 mg/dL (8.4-10.2); Carbon Dioxide 27 mmol/L (22-32); Chloride 104 mmol/L (98-107); Estimated Glomerular Filt Rate > 60.0 mL/min (>60); Globulin 2.3 g/dL (1.7-4.1); Glucose 143 mg/dL (80-110); HEMOLYSIS < 15 (0-50); Potassium 2.9 mmol/L (3.4-5.1); Sodium 140 mmol/L (137-145)
[2017-11-19] MEDS: PANTOPRAZOLE 40 MG VIAL 20 MG IV ×2 (08:42→20:42)
[2017-11-19] MEDS: ENOXAPARIN 40 MG/0.4 ML SYRINGE SUBCUT (08:43)
[2017-11-19] MEDS: DULOXETINE 30 MG CAPSULE PO (08:43)
[2017-11-19] MEDS: PREGABALIN 75 MG CAPSULE PO ×2 (08:43→20:42)
--- NOTE | 2017-11-19 11:24 | PM.PROC.1 ---
Procedures Date/Time Date of procedure: 11/19/17 Time of procedure: 09:35 General Procedure description: Ultrasound guided popliteal sciatic nerve block for post op pain control after right ankle surgery by Dr. Madsen. Risk and benefits of procedure discussed with patient. ASA monitoring applied to patient. Oxygen given via nasal cannula. 2 mg Versed and 100 mcg fentanyl given for procedural sedation. Skin site was prepped with chlorhexidine and allowed to fully dry. Sterile gloves, mask, hat and probe cover were used to maintain sterility. 2% lidocaine and 30ga needle was used to make a small skin wheal at needle insertion site. Under ultrasound guidance, a 21ga 100mm Pajunk needle was directed near the division of the sciatic nerve into tibial and peroneal nerve in the popliteal fossa (lateral approach). Patient reported no parasthesias. After negative aspiration, 12 mL 0.5% ropivicaine, 6 mL 2% lidocaine and 6mg dexamethasone were injected around sciatic nerve. Patient tolerated procedure well. In a similar fashion, the saphenous nerve in the adductor canal was blocked at the level of mid thigh. Injection was 8 mL 0.5% ropivicaine, 4 mL 2% lidocaine and 4 mg dexamethasone.
[2017-11-19] MEDS: KCL 40 MEQ IN NS 1,000 ML 84 MEQ IV (12:15)
--- NOTE | 2017-11-19 15:42 | CM.DPC ---
DCP/continued: Reviewed chart. Met with patient to discuss d/c plan. Patient reports that she was seen by Dr. Logan today and that the current plan is for gallbladder surgery tomorrow. Patient continues to hope to go home when medically stable. Patient reports that she has been out of bed in room but has not gone any long distances. Patient uses/has cane in room. P: CM team to follow closely to determine if patient will have any d/c planning needs. Anticipate home when stable. WEN Vaughn
--- NOTE | 2017-11-19 19:01 | PM.PN.1 ---
Subjective Date Patient Seen: 11/19/17 Time Patient Seen: 10:01 Interval history: History of present illness Follow-up on patient with a gallstone pancreatitis. I requested a surgeon to consult to discuss with patient about a cholecystectomy. Review of system Patient notes that the pain in her abdomen has subsided quite measurably. The pain in her back related to the surgeries and hardware has a pain that may have lessened with these several new medications I added on. I started Elavil at 35 mg at bedtime and Cymbalta 30 mg daily for chronic pain management. Patient denies having any chest pain or shortness of breath no further nausea at this time Exam Vital Signs (past 8 hours): - 11/19/17 12:20 11/19/17 15:07 11/19/17 16:00 Temperature 96.1 F L Pulse Rate 72 67 Respiratory Rate 20 Blood Pressure 170/100 H 187/102 H 151/94 H Pulse Oximetry 92 11/19/17 16:30 Temperature 98.5 F Pulse Rate 64 Respiratory Rate 20 Blood Pressure 162/79 H Pulse Oximetry 95 Oxygen Delivery Method Room Air Oxygen Flow Rate 0 Narrative Exam Narrative: General appearance patient is awake alert no apparent distress at rest smiling Psychiatric well oriented to time place person mood is pleasant cooperative affect is appropriate Respiratory fairly clear to auscultation no wheezes crackles cardiovascular regular rate rhythm no murmur rubs or gallops GI much less tenderness to palpation of the abdomen. Soft no bruits are noted in fair breath sounds Neurologic no focal neurologic changes cranial nerves 2-12 grossly intact Objective Labs Result Diagrams: 11/19/17 05:44 11/19/17 05:44 Labs: Laboratory Results - last 24 hr 11/19/17 11/19/17 05:44 05:44 WBC 6.6 RBC 4.45 Hgb 13.6 Hct 40.0 MCV 89.9 MCH 30.5 MCHC 33.9 RDW 13.9 Plt Count 235 Neut % (Auto) 55.7 Lymph % (Auto) 33.4 [place] % (Auto) 7.0 Eos % (Auto) 3.1 Baso % (Auto) 0.8 Neut # (Auto) 3700 Sodium 140 Potassium 2.9 L Chloride 104 Carbon Dioxide 27 BUN 4 L Creatinine 0.70 Estimated GFR > 60.0 BUN/Creatinine Ratio 5.7 L Glucose 143 H Calcium 8.9 Total Bilirubin 0.5 AST 13 L ALT 15 Alkaline Phosphatase 44 Total Protein 6.0 L Albumin 3.7 Globulin 2.3 Albumin/Globulin Ratio 1.6 Assessment & Plan Plan: Assessment/Plan Narrative: Acute Pancreatitis - suspected due to gallstones that appeared to have passed by the time imaging was conducted. Patient is not an alcoholic. No elevated triglyceride levels - Lipase 1153 with normal lipase levels on November 17 and November 18 - Abd CT and US revealed cholelithiasis but no cholechledolithiathis or dilation of bile ducts- no evidence of obstruction. - analgesic therapy as needed. Stopped the Dilaudid TRAFFIC WAREHOUSE SUPERVISOR pump in a.m. on November 18 Diet started on November 18 and advance as tolerated General surgeon has consulted for the patient and plans cholecystectomy tomorrow 2. Hx of Recurrent CDiff - Scheduled for stool transplant in one month - CDiff PCR not submitted since the stool consistency did did not meet criteria to test for C diff. 3. HTN - BP elevated - Labetalol IV as needed until oral intake is noted Will provide oral blood pressure meds now that she is taking foods and liquids by mouth 4. DM - Patient is normally on glipizide in home setting. - glipizide being held and insulin sliding scale provided as needed 5. Chronic back pain Note significant prior medical history of back surgeries with hardware As discussed with patient, yesterday I started Elavil at 35 mg at bedtime, Cymbalta at 30 mg daily and Lyrica at 75 mg p.o. b.i.d Time Spent With Patient Time with patient: 25 - 35 minutes (25 min)
[2017-11-19] MEDS: AMITRIPTYLINE 10 MG TABLET PO (20:42)
[2017-11-19] MEDS: AMITRIPTYLINE 25 MG TABLET PO (20:42)
[2017-11-19] MEDS: OXYCODONE IR 5 MG TABLET PO (20:50)
[2017-11-20] VITALS (24 sets, daily range): BP systolic 101–193; BP diastolic 56–111; PULSE 61–112; RESP 16–24; TEMP 36.2–37.5; O2SAT 88–99; BMI 32.4
--- NOTE | 2017-11-20 | PATH_ITS ---
[facility] Accession Number: [id number] . 01 Material submitted: . GALLBLADDER AND CONTENTS . 02 Diagnosis: Gallbladder and Contents, Cholecystectomy: Chronic cholecystitis with cholelithiasis. Negative for neoplasm. V/11/22/2017 . 02 Electronically signed: . Misha Buenrostro MD, PhD, Pathologist NPI- [id number] . 01 Gross description: . Received in formalin, labeled gallbladder and contents, is an opened gallbladder (length-6.8 cm, diameter-2.7 cm) with green smooth and shiny serosa and a patent cystic duct. No lymph nodes are identified. The lumen contains green watery bile and multiple brown-black gritty friable calculi (1.4 x 0.5 x 0.3 cm in aggregate). The mucosa is brown-green and semi-velvety. The wall is up to 0.1 cm thick. No nodules, masses or lesions are identified. Section code: (A1) cystic duct resection margin and two serial sections from the body; (A2) two longitudinal sections from the fundus. ([id number]) /[facility] . 02 Pathologist provided ICD-10: K80.10 . 02 CPT . 432896 Specimen Comment: A duplicate report has been generated due to demographic updates. Performed at: 01 [facility] [address] [place] [address], [place], [place] [id number] MD Jabier Wilson MD Phone: [phone] Performed at: 02 [facility] [place] [address] [place], [place] [id number] MD Preet Watson MD Phone: [phone]
[2017-11-20] MEDS: ONDANSETRON 4 MG/2 ML INJ IV ×6 (02:39→21:15)
[2017-11-20] MEDS: HYDROMORPHONE 0.5 MG INJ IV (02:39)
[2017-11-20 05:20] LABS: Add Manual Diff / Slide Review NO; Basophils Percent Auto 0.9 % (0-2); Eosinophils Percent Auto 3.7 % (2-4); Hematocrit 37.6 % (36-46); Hemoglobin 12.8 g/dL (12.0-16.0); Lymphocytes Percent Auto 32.9 % (25-40); Mean Corpuscular Hemoglobin 30.2 PG (26-34); Mean Corpuscular Volume 88.6 fL (80-100); Monocytes Percent Auto 6.9 % (3-14); Neutrophils Absolute Auto 4300 /uL (3000-5900); Neutrophils Percent Auto 55.6 % (50-75); Platelet Count 232 X10^3/uL (150-400); Red Blood Cell Count 4.24 X10^6/uL (4.0-5.2); Red Cell Distribution Width 14.3 % (11.6-14.8); White Blood Cell Count 7.8 X10^3/uL (4.5-11.0)
[2017-11-20 05:33] LABS: Alanine Aminotransferase 26 IU/L (9-52); Albumin 3.6 g/dL (3.5-5.0); Albumin Globulin Ratio 1.6 (1.0-2.8); Alkaline Phosphatase 48 U/L (38-126); Aspartate Aminotransferase 13 IU/L (14-36); BUN Creatinine Ratio 12.5 (6-22); Bilirubin Total 0.5 mg/dL (0.2-1.3); Blood Urea Nitrogen 10 mg/dL (7-17); Calcium 8.8 mg/dL (8.4-10.2); Carbon Dioxide 27 mmol/L (22-32); Chloride 102 mmol/L (98-107); Estimated Glomerular Filt Rate > 60.0 mL/min (>60); Globulin 2.2 g/dL (1.7-4.1); Glucose 111 mg/dL (80-110); HEMOLYSIS < 15 (0-50); Sodium 136 mmol/L (137-145); Total Protein 5.8 g/dL (6.3-8.2)
[2017-11-20] MEDS: LABETALOL 100 MG/20ML MDV 10 MG IV (08:02)
[2017-11-20] MEDS: PANTOPRAZOLE 40 MG VIAL 20 MG IV ×2 (08:24→21:18)
[2017-11-20] MEDS: HYDROMORPHONE 1 MG INJ IV ×4 (08:43→21:16)
[2017-11-20] MEDS: KCL 40 MEQ IN NS 1,000 ML 84 MEQ IV ×2 (08:44→23:09)
--- NOTE | 2017-11-20 10:22 | PC.NURSE ---
Addendum entered by July Hernandez R.N. 11/20/17 15:10: POST OP ARRIVAL - 1320 - drowsy, speaking softly, nausea controlled w/earlier zofran, iv dilaudid in pacu, pt returns sleep quickly after vitals, scd placed, 02 1L placed in pacu and sat now 96%, states mouth dry and given few ice chips, bandaids x4 cdi w/small spot serosang mid abd telfa. Original Note: AM NOTE - dozing, easily awakens, does have on/off nausea, chronic back pain 6 on scale 0/10, ra 99%, bs clear, given 4mg iv zofran and 1mg iv dilaudid this am, npo for procedure, later am, EMPLOYMENT PROGRAMS ANALYST arrived for surg, pt silver colored wedding band w/clear stone and earrings x2 with clear stones were removed and given to spouse.
[2017-11-20] MEDS: LACTATED RINGERS 1,000 ML 42 ML IV (10:25)
--- NOTE | 2017-11-20 11:21 | SUR.OPER ---
Supine on padded OR bed, head on pillow, arms secured on padded arm boards at <90 degrees abduction, legs uncrossed, safety belt at thigh, tape over blanket over lower legs.
[2017-11-20] MEDS: BUPIVACAINE 0.5% W/ EPI (PF) VIAL 30 ML INJ (11:33)
[2017-11-20] MEDS: HYDROMORPHONE 2 MG INJ 0.5 MG IV ×2 (12:25→12:38)
[2017-11-20] MEDS: METOCLOPRAMIDE 10 MG/2 ML INJ IV (12:33)
--- NOTE | 2017-11-20 12:41 | SUR.PHASEI ---
Dr. Hernandez notified [facility] 169, no insulin needed per MD.
--- NOTE | 2017-11-20 13:00 | SUR.PHASEI ---
Pt reported she was feeling better but rated her pain 6/10 and c/o nausea. Fell asleep quickly. Medicated with Zofran.
--- NOTE | 2017-11-20 13:15 | SUR.PHASEI ---
Report called to July. Vs stable. Pt transferred to floor by Diane. pulse ox in place.
--- NOTE | 2017-11-20 13:30 | OP_ITS ---
DATE OF SERVICE: 11/20/2017 PREOP DIAGNOSIS: Cholecystitis, cholelithiasis, gallstone pancreatitis. POSTOP DIAGNOSIS: Cholecystitis, cholelithiasis, gallstone pancreatitis.. OPERATION: Laparoscopic cholecystectomy. SURGEON: David Palacio MD DESCRIPTION OF PROCEDURE: The patient was given a general endotracheal anesthetic, prepped and draped in a sterile fashion with exposure of the upper abdomen. She was properly identified during a surgical pause. A 5-mm incision was made to the right and above the umbilicus. The patient actually had a right upper quadrant previous scar from appendectomy many years ago, when she was actually a young child, so that was in the right upper quadrant for some reason. But in any event, I avoided that scar and placed under direct visualization a 5-mm port into the peritoneal cavity with no injury to the viscera. Three additional ports were placed using alternative port placement to avoid the adhesions under that above-mentioned scar, so a 10-mm and 2 additional 5-mm ports were placed under direct vision with an excellent pneumoperitoneum established. The liver was elevated. The gallbladder was grasped. It was edematous and distended. It was elevated toward the patient's right shoulder. The cholecystoduodenal ligament was dissected carefully down to the critical view of Calot triangle, clearly showing cystic artery, Calot node. The cystic duct was closed with multiple clips, divided, leaving several with the patient. There was no bile leak. The cystic artery was closed with multiple clips, divided, leaving several with the patient. There was no bleeding. The gallbladder was then further elevated away from the dorita hepatis, and using the Bovie electrocautery, I lightly cauterized the serosa and the gallbladder and dissected away from the liver bed with meticulous hemostasis. The gallbladder and its contents were removed. The operative site was irrigated with 1 L of sterile saline, aspirated dry. There was no bleeding and no bile leak. The trocars were removed under direct vision. There was no bleeding. The skin was stapled after I provided local anesthetic with bupivacaine and epinephrine. The procedure was very well tolerated with sterile dressings applied. FlorenciaAngelic - Josey doc#: [id number]/job#: [id number] dd: 11/20/2017 12:03:00 dt: 11/20/2017 13:22:00 DICTATING MD/COPIES TO: David Palacio MD COPIES MNE: LEEANNE
--- NOTE | 2017-11-20 14:05 | SUR.PHASEI ---
Dr. Hernandez notified regarding patient status, ko score. No new orders.
--- NOTE | 2017-11-20 14:40 | PM.PN.1 ---
Subjective Date Patient Seen: 11/20/17 Interval history: Patient is s/p cholecystectomy. She complains of pain and nausea Exam Vital Signs (past 8 hours): - 11/20/17 07:55 11/20/17 08:15 11/20/17 10:20 Temperature 97.5 F L 97.1 F L Pulse Rate 66 69 Respiratory Rate 16 16 Blood Pressure 184/93 H 137/89 Pulse Oximetry 99 99 96 11/20/17 12:03 11/20/17 12:04 11/20/17 12:06 Temperature 99.5 F Pulse Rate 104 H 78 74 Respiratory Rate 19 21 Blood Pressure 192/103 H 193/111 H 188/101 H Pulse Oximetry 88 L 95 11/20/17 12:07 11/20/17 12:12 11/20/17 12:17 Temperature Pulse Rate 75 80 83 Respiratory Rate 22 24 Blood Pressure 177/101 H 152/78 H 152/82 H Pulse Oximetry 97 97 11/20/17 12:32 11/20/17 12:48 11/20/17 13:04 Temperature Pulse Rate 84 72 64 Respiratory Rate 18 23 21 Blood Pressure 136/77 117/65 104/61 Pulse Oximetry 96 96 92 11/20/17 13:07 11/20/17 13:20 11/20/17 14:20 Temperature 98.0 F 97.9 F Pulse Rate 66 75 67 Respiratory Rate 21 16 16 Blood Pressure 101/59 L 102/56 L 103/56 L Pulse Oximetry 94 97 97 11/20/17 14:33 Temperature Pulse Rate Respiratory Rate Blood Pressure Pulse Oximetry 96 Oxygen Delivery Method Nasal Cannula Oxygen Flow Rate 1 Narrative Exam Narrative: Lungs: clear to auscultation CV: RRR nl Sl S2 Abd: soft/ mildly tender, no palpable masses Ext: no edema Objective Labs Result Diagrams: 11/20/17 05:10 11/20/17 05:10 Labs: Laboratory Results - last 24 hr 11/20/17 11/20/17 05:10 05:10 WBC 7.8 RBC 4.24 Hgb 12.8 Hct 37.6 MCV 88.6 MCH 30.2 MCHC 34.0 RDW 14.3 Plt Count 232 Neut % (Auto) 55.6 Lymph % (Auto) 32.9 [place] % (Auto) 6.9 Eos % (Auto) 3.7 Baso % (Auto) 0.9 Neut # (Auto) 4300 Sodium 136 L Potassium 3.0 L Chloride 102 Carbon Dioxide 27 BUN 10 Creatinine 0.80 Estimated GFR > 60.0 BUN/Creatinine Ratio 12.5 Glucose 111 H Calcium 8.8 Total Bilirubin 0.5 AST 13 L ALT 26 Alkaline Phosphatase 48 Total Protein 5.8 L Albumin 3.6 Globulin 2.2 Albumin/Globulin Ratio 1.6 Assessment & Plan (1) Acute pancreatitis: Problem details: Continue symptomatic treatment Qualifiers: Acute pancreatitis complication: unspecified Pancreatitis type: unspecified pancreatitis type Qualified Code(s): K85.90 - Acute pancreatitis without necrosis or infection, unspecified Current visit: Yes Status: Acute (2) LLQ abdominal pain: Current visit: No Status: Acute (3) Diarrhea: Current visit: No Status: Acute (4) Cholelithiasis: Problem details: s/p cholecystectomy Current visit: Yes Status: Acute (5) Hypokalemia with normal pH: Problem details: will replace Current visit: Yes Status: Acute
[2017-11-20] MEDS: OXYCODONE IR 5 MG TABLET PO (19:08)
[2017-11-20] MEDS: PREGABALIN 75 MG CAPSULE PO (21:17)
[2017-11-20] MEDS: POTASSIUM CHLORIDE 20 MEQ TAB 40 MEQ PO (21:17)
[2017-11-20] MEDS: AMITRIPTYLINE 10 MG TABLET PO (21:18)
[2017-11-20] MEDS: AMITRIPTYLINE 25 MG TABLET PO (21:18)
[2017-11-21 01:15] VITALS: BP 137/91; PULSE 100; RESP 20; TEMP 37.2; O2SAT 96
[2017-11-21] MEDS: ONDANSETRON 4 MG/2 ML INJ IV ×2 (03:30→08:51)
[2017-11-21] MEDS: HYDROMORPHONE 1 MG INJ IV (03:44)
[2017-11-21 05:20] VITALS: BP 121/76; PULSE 84; RESP 20; TEMP 36.7; O2SAT 96
[2017-11-21 07:57] LABS: BUN Creatinine Ratio 17.8 (6-22); Blood Urea Nitrogen 16 mg/dL (7-17); Calcium 8.9 mg/dL (8.4-10.2); Carbon Dioxide 25 mmol/L (22-32); Chloride 103 mmol/L (98-107); Estimated Glomerular Filt Rate > 60.0 mL/min (>60); Glucose 135 mg/dL (80-110); HEMOLYSIS < 15 (0-50); Potassium 4.5 mmol/L (3.4-5.1); Sodium 138 mmol/L (137-145)
[2017-11-21 08:27] VITALS: BP 147/76; PULSE 91; RESP 20; TEMP 37.1; O2SAT 100
[2017-11-21] MEDS: PANTOPRAZOLE 40 MG VIAL 20 MG IV (08:46)
[2017-11-21] MEDS: OXYCODONE IR 5 MG TABLET PO ×2 (09:38→13:20)
[2017-11-21] MEDS: DULOXETINE 30 MG CAPSULE PO (09:38)
[2017-11-21] MEDS: LACTOBACILLUS ACIDOPHILUS TABLET 1 EACH PO (09:39)
[2017-11-21] MEDS: TELMISARTAN 40 MG TABLET PO (09:39)
[2017-11-21] MEDS: PREGABALIN 75 MG CAPSULE PO (09:39)
[2017-11-21 09:52] VITALS: O2SAT 98
--- NOTE | 2017-11-21 10:11 | PC.NURSE ---
AM NOTE - awakened for late breakfast, drowsy, wincing with pain abd, cramping like discomfort, abd s, tender and moderately distended, passing flatus, ongoing nausea at times, discussed medications, given zofran 4 mg iv, elizabeth sips juice and full liq, given 5mg po oxycodone, abd telfa w/op site over di, small spot old serosang, ra 97%, enc mobilization this am after adequate pain management.
[2017-11-21] MEDS: KETOROLAC 30 MG/ML VIAL IV (10:40)
[2017-11-21] MEDS: KCL 40 MEQ IN NS 1,000 ML 84 MEQ IV (10:41)
--- NOTE | 2017-11-21 11:26 | PN_ITS ---
DATE OF SERVICE: 11/21/2017 SUBJECTIVE: The patient is 1 day postoperative laparoscopic cholecystectomy for gallstone pancreatitis. Subjectively, she is having incisional discomfort in the right upper quadrant, around the trocar sites. OBJECTIVE: Vital signs are stable. She is afebrile. On exam, her skin and sclerae are clear. No icterus. Trocar sites are healing beautifully with not even any drainage on the small Tegaderm dressings. Abdomen is soft. IMPRESSION: She is on a full liquid diet, which she is tolerating. PLAN: I will advance her to a regular diet. I am going to give her a single dose of Toradol 30 IV so that she might be able to ambulate better and should be able to be discharged either later today or first thing in the morning. She'll need to come back to the surgery clinic in a week or to her regular physician to have her kristin out. The patient may shower. Angelic Don - Cl/reji doc#: [id number]/job#: [id number] dd: 11/21/2017 10:03:00 dt: 11/21/2017 11:22:00 DICTATING /COPIES TO: David Palacio MD COPIES MNE: LEEANNE
[2017-11-21 11:50] VITALS: BP 114/77; PULSE 97; RESP 18; TEMP 37.2; O2SAT 100
[2017-11-21] MEDS: INSULIN ASPART 100 UNIT/ML INSULN PEN SUBCUT (12:04)
--- NOTE | 2017-11-21 13:53 | PM.DS.1 ---
History of Present Illness Date Patient Seen: 11/21/17 Chief complaint: Throwing up, thinks CDIFF Narrative: 62-year-old female with past medical history of diabetes, hypertension, recurrent C diff colitis -8 times, hyperlipidemia presented to the ED with abdominal pain and 1 episode of nonbloody nonbilious. Patient states the pain came on suddenly 1 day prior to admission, started out in the right mid quadrant, however progressed to the back. Pain is sharp, 9/10 severity, and associated with extreme nausea, with 1 episode of nonbilious nonbloody vomitus prior to admission. Patient denied any loss of consciousness, blurry vision, dizziness. Patient denied any headaches. Patient denied any cough, sore throat, shortness of breath, chest pain. Patient has chronic acid reflux for which she takes Zantac. Patient denied any symptoms. Patient does not drink alcohol, and has never been diagnosed with gallstones. Of note patient has been diagnosed with C diff colitis 810 in the past, with the most recent 1 month ago, for which she received vancomycin p.o.. Patient is scheduled to receive stool transplant within the next month at the [facility]. Currently patient complains of severe nausea. No more episodes of diarrhea since admission. In ED, patient was found to be afebrile. Vital signs were significant for high blood pressure of 162/109. Lab work revealed leukocytosis of 16.0, hemoglobin 16.5, platelets 384. CMP revealed sodium 138, potassium 3.4, chloride 99, bicarb 29. BUN was 18, creatinine 1.8. Glucose was 145, and lipase was 1153. CT of the abdomen revealed several non enhancing bilateral renal simple cysts, pancolonic diverticulosis, small gallstones, and periumbilical ventral hernia. Abdominal ultrasound revealed cholelithiasis, increased hepatic echogenicity, and simple renal cyst. Patient was admitted to acute care unit for management of acute pancreatitis. Discharge Providers Date of admission: 11/15/17 23:08 Primary care physician: Jerry Taylor MD Discharge provider: Della Amador MD Discharge Date: 11/21/17 Summary Discharge Diagnosis: s/p cholecystectomy Acute pancreatitis Cdiff colitis Type 2 Diabetes Mellitus Hyperlipidemia Hypertension Hospital Course: Patient was admitted to the hospital for acute pancreatitis. She was found to have cholelithiasis and ultimately underwent cholecystectomy. She had an uneventful surgery. She was able to tolerate her diet, ambulated, and was deemed appropriate for discharge home. Patient has chronic recurrent Cdiff colitis and is scheduled next week for a stool transplant at the [facility] Status at Discharge Cognitive/behavioral status at discharge: Back to baseline Functional status at discharge: independent ambulation Overall status at discharge: patient is back to baseline Time Spent with Patient Less than 30 minutes Exam Vital Signs (past 8 hours): - 11/21/17 08:27 11/21/17 09:52 11/21/17 11:50 Temperature 98.7 F 99.0 F Pulse Rate 91 H 97 H Respiratory Rate 20 18 Blood Pressure 147/76 H 114/77 Pulse Oximetry 100 98 100 Oxygen Delivery Method Room Air Oxygen Flow Rate 0 Narrative Exam Narrative: Uncomfortable earlier from pain and nausea. Symptoms have significantly improved Lungs: Clear to auscultation CV: RRR nl Sl S2 Abd: soft/ non tender /non distended Ext: no edema Objective Labs Result Diagrams: 11/20/17 05:10 11/21/17 06:30 Labs: Laboratory Results - last 24 hr 11/21/17 06:30 Sodium 138 Potassium 4.5 D Chloride 103 Carbon Dioxide 25 BUN 16 Creatinine 0.90 Estimated GFR > 60.0 BUN/Creatinine Ratio 17.8 Glucose 135 H Calcium 8.9 Discharge Plan Discharge Plan Discharge Problem: Acute pancreatitis Patient Disposition: Home Discharge Med Rec/Prescriptions Prescriptions: Continue simvastatin 40 MG tablet 40 mg PO Q DAY Qty: 0 RF: 0 glipizide 5 mg tablet 1 tab PO DAILY RF: 0 oxycodone 5 mg tablet 1 tab PO QID MDD pain, severe RF: 0 Ambien 1 tab PO BEDTIME PRN (Reason: Sleep) RF: 0 ondansetron 8 mg tablet,disintegrating 8 mg PO TID PRN (Reason: Nausea And Vomiting) RF: 0 telmisartan [Micardis] 40 mg tablet 40 mg PO DAILY RF: 0 Probiotic 1 cap PO DAILY RF: 0 Follow up/Referrals: Jerry Taylor MD [Primary Care Provider] - 1 Week ([facility] for stool transplant as previously scheduled) Provider Discharge Instructions Diet: Low-fat and Low-sodium Activity: as tolerated Discharge Data Primary Care Provider: Jerry Taylor Attending Provider: Mireya Kee Admit Date/Time: 11/15/17 23:08
--- NOTE | 2017-11-21 14:42 | CM.DPC ---
DCP Cont: Pt going home today w/procedure scheduled at [facility] next week : stool transplant. Pt is back to baseline functionally and safe to DC home w/ spouse. JW
== END 2017-11-21 16:24 | disposition home or self-care (01) | DRG 418 ==
LOC: ED 22:53 → AC 23:08
PROVIDERS: Emergency Medicine; Internal Medicine; Surgery; Admitting Provider Internal Medicine; Emergency Provider Emergency Medicine; PCP Internal Medicine; Visit Provider Internal Medicine
PROC: 0FT44ZZ Resection of Gallbladder, Percutaneous Endoscopic Approach (ICD-10-PCS; CPT 47562; principal; 2017-11-20 11:00)
DX: K85.10 Biliary acute pancreatitis without necrosis or infection (principal); A04.71 Enterocolitis due to Clostridium difficile, recurrent; E87.6 Hypokalemia; E11.9 Type 2 diabetes mellitus without complications; I10 Essential (primary) hypertension; Z86.19 Personal history of other infectious and parasitic diseases; E78.5 Hyperlipidemia, unspecified; F17.210 Nicotine dependence, cigarettes, uncomplicated; Z79.84 Long term (current) use of oral hypoglycemic drugs; E83.42 Hypomagnesemia; G89.29 Other chronic pain
CPT/HCPCS: 36415; 36591; 47562; 76700; 80048; 80053; 82962; 83690; 83735; 85025; 85610; 85730; 88304; 93005; 96361; 96374; 96375; 99284; 99406; C9113; J1100; J1170; J1650; J1885; J2405; J2704; J2765; J3010; J3480

== ENCOUNTER 2017-12-06 17:09 | Emergency (ER) | payer MEDICARE, OTHER, SELFPAY ==
[2017-11-16 01:03] VITALS: BMI 32.4
[2017-12-06 17:27] VITALS: BP 192/115; PULSE 96; RESP 19; TEMP 36.5; O2SAT 99
--- NOTE | 2017-12-06 17:45 | ED.NAVMDI ---
HPI - Nausea/Vomiting/Diarrhea General Chief complaint: Nausea/Vomiting/Diarrhea Stated complaint: POSS C DIFF Time Seen by Provider: 12/06/17 17:22 Related Data Home Medications Medication Instructions Recorded Confirmed simvastatin 40 mg PO Q DAY #0 03/29/16 12/06/17 Ambien 1 tab PO BEDTIME PRN 11/15/17 11/15/17 Probiotic 1 cap PO DAILY 11/15/17 11/15/17 glipizide 1 tab PO DAILY 11/15/17 12/06/17 ondansetron 8 mg PO TID PRN 11/15/17 12/06/17 oxycodone 1 tab PO QID MDD pain, severe 11/15/17 12/06/17 telmisartan 40 mg PO DAILY 11/15/17 11/15/17 carvedilol 1 tab PO BID 12/06/17 12/06/17 hydralazine 1 tab PO TID 12/06/17 12/06/17 oxycodone 12/06/17 Previous Rx's Medication Instructions Recorded hydromorphone [Dilaudid] 2 mg PO Q6H PRN #5 tab 12/06/17 Allergies Allergy/AdvReac Type Severity Reaction Status Date / Time adhesive tape [ADHESIVE TAPE] Allergy Unknown Verified 12/06/17 17:26 Opioids - Morphine Analogues Allergy Unknown Verified 12/06/17 17:26 [OPIOIDS - MORPHINE ANALOGUES] PFS Medical History Diabetes (Acute) C. difficile colitis (Chronic) HLD (hyperlipidemia) (Chronic) HTN (hypertension) (Chronic) Pancreatitis (Resolved) Surgical History S/P laparoscopic cholecystectomy (Acute) Social History household members: spouse Smoking Status: Current every day smoker Exam Initial Vital Signs Initial Vital Signs: Vital Signs Temperature 97.7 F 12/06/17 17:27 Pulse Rate 96 H 12/06/17 17:27 Respiratory Rate 19 12/06/17 17:27 Blood Pressure 192/115 H 12/06/17 17:27 Pulse Oximetry 99 12/06/17 17:27 Course Orders Ordered: ED Orders 12/06/17 17:53 Stool Culture Stat 12/06/17 18:06 Complete Blood Count AUTO DIFF Stat Comprehensive Metabolic Panel Stat Lipase Stat 12/06/17 18:34 CT abdomen pelvis w con Stat 12/06/17 19:10 Lactate (Lactic Acid) Stat 12/06/17 19:18 Blood Culture Stat Discontinued Medications Hydromorphone HCl (Dilaudid) 1 mg IV NOW ONE Stop: 12/06/17 18:35 Last Admin: 12/06/17 19:06 Dose: 1 mg Sodium Chloride (Normal Saline 0.9%) 1,000 mls @ 1,000 mls/hr IV BOLUS ONE Stop: 12/06/17 18:52 Last Infusion: 12/06/17 19:54 Dose: 0 mls/hr Admin: 12/06/17 18:14 Dose: 1,000 mls/hr Sodium Chloride (Normal Saline 0.9%) 1,000 mls @ 1,000 mls/hr IV BOLUS ONE Stop: 12/06/17 20:34 Last Admin: 12/06/17 19:54 Dose: 1,000 mls/hr Lorazepam (Ativan) 0.5 mg IV NOW ONE Stop: 12/06/17 18:35 Last Admin: 12/06/17 19:06 Dose: 0.5 mg Ondansetron HCl (Zofran) 4 mg IV NOW ONE Stop: 12/06/17 17:54 Last Admin: 12/06/17 18:14 Dose: 4 mg Ondansetron HCl (Zofran) 4 mg IV NOW ONE Stop: 12/06/17 19:10 Last Admin: 12/06/17 19:10 Dose: 4 mg Vital Signs - 8 hr 12/06/17 17:27 12/06/17 21:20 Temperature 97.7 F Pulse Rate 96 H 97 H Respiratory Rate 19 20 Blood Pressure 192/115 H Blood Pressure [Right Arm] 158/100 H Pulse Oximetry 99 98 MDM - Nausea/Vomiting/Diarrhea Lab Data Result diagrams: 12/06/17 18:06 12/06/17 18:06 Lab Results 12/06/17 12/06/17 12/06/17 Range/Units 18:06 18:06 19:10 WBC 12.1 H (4.5-11.0) X10^3/uL RBC 4.82 (4.0-5.2) X10^6/uL Hgb 14.3 (12.0-16.0) g/dL Hct 42.8 (36-46) % MCV 89.0 (80-100) fL MCH 29.8 (26-34) PG MCHC 33.5 (30-36) % RDW 14.1 (11.6-14.8) % Plt Count 626 H (150-400) X10^3/uL Neut % (Auto) 82.2 H (50-75) % Lymph % (Auto) 11.1 L (25-40) % [place] % (Auto) 5.5 (3-14) % Eos % (Auto) 0.2 L (2-4) % Baso % (Auto) 1.0 (0-2) % Neut # (Auto) 67621 H (2107-3417) /uL Sodium 141 (137-145) mmol/L Potassium 3.9 (3.4-5.1) mmol/L Chloride 93 L (98-107) mmol/L Carbon Dioxide 31 (22-32) mmol/L BUN 15 (7-17) mg/dL Creatinine 1.10 H (0.52-1.04) mg/dL Estimated GFR 50.0 L (>60) mL/min BUN/Creatinine Ratio 13.6 (6-22) Glucose 177 H (80-110) mg/dL Lactate 1.3 (0.7-2.1) mmol/L Calcium 10.7 H (8.4-10.2) mg/dL Total Bilirubin 0.7 (0.2-1.3) mg/dL AST 21 (14-36) IU/L ALT 27 (9-52) IU/L Alkaline Phosphatase 80 (38-126) U/L Total Protein 8.5 H (6.3-8.2) g/dL Albumin 5.1 H (3.5-5.0) g/dL Globulin 3.4 (1.7-4.1) g/dL Albumin/Globulin Ratio 1.5 (1.0-2.8) Lipase 330 H (23-300) U/L Urine Dip Bedside Urine Glucose Negative Bedside Urine Bilirubin - Negative Bedside Urine Ketone - Negative Urine Specific [place] 1.010 Bedside Urine Occult Blood - Negative Bedside Urine pH 8.5 Bedside Urine Protein - Negative Bedside Urine Urobilinogen - Negative Bedside Urine Nitrite - Negative Bedside Urine Leukocytes - Negative Esterase Discharge Plan Departure Clinical Impression: Vomiting, Hx of cholecystectomy Instructions: DI for Vomiting -- Adult Activity Restrictions/Additional Instructions: Return to the emergency department if her symptoms are improving over the weekend if he continued to have vomiting. If you're having fevers greater than 100.4, new or increasing abdominal pain, black or bloody stools, worsening diarrhea or other new or concerning symptoms. Call Saturday morning for follow-up with General surgery. Continue your home medications as prescribed including your Zofran. Take pain medication as prescribed this medication can make you sleepy do not drive, perform hazards activities or make any major decisions while taking it. Your imaging shows thickening of the duodenum, cause of this is unclear but further evaluation with upper GI or endoscopy is recommended in the future. Prescriptions: New hydromorphone [Dilaudid] 2 mg tablet 2 mg PO Q6H PRN (Reason: pain) Qty: 5 RF: 0 No Action simvastatin 40 MG tablet 40 mg PO Q DAY Qty: 0 RF: 0 glipizide 5 mg tablet 1 tab PO DAILY RF: 0 oxycodone 5 mg tablet 1 tab PO QID MDD pain, severe RF: 0 Ambien 1 tab PO BEDTIME PRN (Reason: Sleep) RF: 0 ondansetron 8 mg tablet,disintegrating 8 mg PO TID PRN (Reason: Nausea And Vomiting) RF: 0 telmisartan 40 mg tablet 40 mg PO DAILY RF: 0 Probiotic 1 cap PO DAILY RF: 0 carvedilol 12.5 mg tablet 1 tab PO BID RF: 0 hydralazine 25 mg tablet 1 tab PO TID RF: 0 oxycodone 5 mg tablet RF: 0 Referrals: Jerry Taylor MD [Primary Care Provider] - Shaun Sandy MD [Physician] -
[2017-12-06] MEDS: SODIUM CHLORIDE 0.9% 1,000 ML 1000 ML IV ×2 (18:14→19:54)
[2017-12-06] MEDS: ONDANSETRON 4 MG/2 ML INJ IV ×2 (18:14→19:10)
[2017-12-06 18:15] LABS: Add Manual Diff / Slide Review NO; Eosinophils Percent Auto 0.2 % (2-4); Hematocrit 42.8 % (36-46); Hemoglobin 14.3 g/dL (12.0-16.0); Lymphocytes Percent Auto 11.1 % (25-40); Mean Corpuscular HGB Conc 33.5 % (30-36); Mean Corpuscular Hemoglobin 29.8 PG (26-34); Monocytes Percent Auto 5.5 % (3-14); Neutrophils Absolute Auto 10000 /uL (3000-5900); Neutrophils Percent Auto 82.2 % (50-75); Platelet Count 626 X10^3/uL (150-400); Red Blood Cell Count 4.82 X10^6/uL (4.0-5.2); Red Cell Distribution Width 14.1 % (11.6-14.8); White Blood Cell Count 12.1 X10^3/uL (4.5-11.0)
--- NOTE | 2017-12-06 18:34 | DI.CT.S_ITS ---
PROCEDURE: CT ABDOMEN PELVIS W CON INDICATIONS: recent cholecystectomy vomiting/abd pain, hx c diff TECHNIQUE: After the administration of intravenous contrast, 5 mm thick sections acquired from the diaphragm to the symphysis. 5 mm coronal and sagittal reformats were acquired. For radiation dose reduction, the following was used: automated exposure control, adjustment of mA and/or kV according to patient size. COMPARISON: [facility], CT, ABDOMEN W&WO CONTRAST, 10/05/2016, 11:14. [facility], CT, ABDOMEN/PELVIS WITH CONTRAST, 11/20/2012, 13:39. [facility], CT, CT ABDOMEN PELVIS WITH CONTRAST, 07/02/2017, 14:13. [facility], CT, CT ABDOMEN WO/W CON, 08/15/2017, 12:54. FINDINGS: Image quality: Excellent. ABDOMEN: Lung bases: Lung bases are clear. Heart size is normal. Solid organs: Liver is enlarged steatosis. Gallbladder has been removed. There is minimal stranding and fluid along the inferior aspect of the gallbladder fossa.. Biliary system is non dilated. Pancreas enhances normally. Spleen is normal in size and enhancement. No adrenal nodules. Kidneys demonstrate normal size and enhancement, without hydronephrosis. Renal cysts are again noted. Peritoneum and bowel: Bowel loops are nonobstructed. Colonic diverticula are present without associated inflammatory change. There is marked thickening of the duodenal C-loop which has not appreciably changed. No free fluid or air. Nodes and vessels: No retroperitoneal or mesenteric adenopathy by size criteria. Aorta and inferior vena cava are normal in size. Miscellaneous: Fat containing ventral hernia is present. PELVIS: Genitourinary: Bladder wall thickness is normal. Miscellaneous: No inguinal hernias or adenopathy. Bones: No suspicious bony lesions. No vertebral body compression fractures. Lumbar posterior fixation is present. IMPRESSION: 1. Cholecystectomy with minimal stranding and fluid along the inferior aspect of the gallbladder fossa, extending to an adjacent loop of ascending colon. This is suspected to be related to postcholecystectomy changes. No defined focal fluid collection is present. Recommend short interval imaging followup if symptoms persist. 2. Persistent marked thickening of the duodenal C-loop as above. Etiology of this is uncertain but appears to be not related to incomplete distention. Further evaluation with upper GI or endoscopy is recommended to exclude mass lesion. Dictated by: Tootie Shi M.D. on 12/06/2017 at 19:59 Approved by: Tootie Shi M.D. on 12/06/2017 at 20:05
--- NOTE | 2017-12-06 18:37 | ED.NAVMDI ---
HPI - Nausea/Vomiting/Diarrhea General Chief complaint: Nausea/Vomiting/Diarrhea Stated complaint: POSS C DIFF Time Seen by Provider: 12/06/17 17:22 Source: patient and old records reviewed Limitations: no limitations History of Present Illness HPI Narrative: This is a 62-year-old female who comes to the emergency department with 3 days of nausea and vomiting as well as some diarrhea. Patient states she has not had a lot of diarrhea or loose stools but has had some. Mostly she is having nausea and vomiting. She has not had any fevers but she does have night sweats and states she is going through multiple out fits overnight. She had a laparoscopic cholecystectomy on and was discharged on Saturday or . She states she does have a history of C diff and has had 8 episodes in the past. She has had diarrhea every time with these episodes. She is having some abdominal pain but it has not been increasing. It is on the left lower side of her abdomen and not on the right like she had with her pancreatitis and gallbladder issues. She is not having any urinary issues. She has been having some back pain particularly after vomiting. She states it feels like there is a lump by her spine. She denies any chest pain or shortness of breath. She does normally take oxycodone for pain which she has not been able to keep down. She was discharged home on Dilaudid but has also not been able to keep this down. Patient does have consultation for stool transplant at [facility] on the . Related Data Home Medications Medication Instructions Recorded Confirmed simvastatin 40 mg PO Q DAY #0 03/29/16 12/06/17 Ambien 1 tab PO BEDTIME PRN 11/15/17 11/15/17 Probiotic 1 cap PO DAILY 11/15/17 11/15/17 glipizide 1 tab PO DAILY 11/15/17 12/06/17 ondansetron 8 mg PO TID PRN 11/15/17 12/06/17 oxycodone 1 tab PO QID MDD pain, severe 11/15/17 12/06/17 telmisartan 40 mg PO DAILY 11/15/17 11/15/17 carvedilol 1 tab PO BID 12/06/17 12/06/17 hydralazine 1 tab PO TID 12/06/17 12/06/17 oxycodone 12/06/17 Previous Rx's Medication Instructions Recorded hydromorphone [Dilaudid] 2 mg PO Q6H PRN #5 tab 12/06/17 Allergies Allergy/AdvReac Type Severity Reaction Status Date / Time adhesive tape [ADHESIVE TAPE] Allergy Unknown Verified 12/06/17 17:26 Opioids - Morphine Analogues Allergy Unknown Verified 12/06/17 17:26 [OPIOIDS - MORPHINE ANALOGUES] Review of Systems Review of Systems All systems reviewed & are unremarkable except as noted in HPI and below Constitutional Denies fever(s), Reports night sweats and Reports poor appetite Cardiovascular Denies chest pain, Denies lightheadedness, Denies palpitations, Denies dyspnea, Denies dyspnea on exertion and Denies orthopnea Respiratory Denies chest congestion, Denies cough, Denies dyspnea, Denies dyspnea on exertion and Denies wheezing Gastrointestinal Gastrointestinal: Reports abdominal pain, Denies melena, Denies change in bowel habits, Reports diarrhea (no frequent stools.), Reports loose stools, Reports nausea, Reports vomiting and Denies hematemesis Genitourinary Denies hematuria, Denies flank pain, Denies urinary incontinence and Denies urinary urgency Musculoskeletal Reports back pain, Denies numbness and Denies tingling Integumentary/Breasts Denies non-healing lesions Neurologic Denies numbness and Denies tingling Endocrine Denies palpitations Allergic/Immunologic Denies wheezing PFSH Medical History Diabetes (Acute) C. difficile colitis (Chronic) HLD (hyperlipidemia) (Chronic) HTN (hypertension) (Chronic) Pancreatitis (Resolved) Surgical History S/P laparoscopic cholecystectomy (Acute) Social History household members: spouse Smoking Status: Current every day smoker Exam Narrative Exam Narrative: GENERAL: Alert and oriented x three, well nourished female in moderate distress. Patient vomited intermittently during evaluation. HEENT: Head normocephalic, atraumatic, EOMI, pupils reactive, face symmetric, moist mucous membranes NECK: Supple, full range of motion CARDIOVASCULAR: Regular rate and rhythm without murmurs, rubs or gallops. RESPIRATORY: Breath sounds equal bilaterally, no wheezes rales or rhonchi. ABDOMEN: Soft, nontender to palpation. Normoactive bowel sounds all 4 quadrants. No guarding or rebound, rigidity, no mass. Patient moderately distressed. Patient has 3 healed incisions consistent with laproscopic cholecystectomy they are slightly hyperpigemented but no erythema, drainage, crusting, scabbing or signs of infection. : No CVA tenderness. BACK: No cervical, thoracic or lumbar vertebral point tenderness. Patient has normal range of motion although uncomfortable rolling over. Muscle strength is 5/5 in lower extremities, sensation intact in lower extremities. Full range of motion of lower extremities. 5/5 muscle strength b/l lower extremities. EXTREMITIES: Normal range of motion, no clubbing or edema. Neurovascularly intact NEUROLOGICAL: Cranial nerves II through XII grossly intact. Moving all extremities SKIN: Warm, dry, no petechiae, no rashes or lesions. Initial Vital Signs Initial Vital Signs: Vital Signs Temperature 97.7 F 12/06/17 17:27 Pulse Rate 96 H 12/06/17 17:27 Respiratory Rate 19 12/06/17 17:27 Blood Pressure 192/115 H 12/06/17 17:27 Pulse Oximetry 99 12/06/17 17:27 Course Orders Ordered: ED Orders 12/06/17 18:06 Complete Blood Count AUTO DIFF Stat Comprehensive Metabolic Panel Stat Lipase Stat 12/06/17 18:34 CT abdomen pelvis w con Stat 12/06/17 19:10 Lactate (Lactic Acid) Stat 12/06/17 19:18 Blood Culture Stat Discontinued Medications Hydromorphone HCl (Dilaudid) 1 mg IV NOW ONE Stop: 12/06/17 18:35 Last Admin: 12/06/17 19:06 Dose: 1 mg Sodium Chloride (Normal Saline 0.9%) 1,000 mls @ 1,000 mls/hr IV BOLUS ONE Stop: 12/06/17 18:52 Last Infusion: 12/06/17 19:54 Dose: 0 mls/hr Admin: 12/06/17 18:14 Dose: 1,000 mls/hr Sodium Chloride (Normal Saline 0.9%) 1,000 mls @ 1,000 mls/hr IV BOLUS ONE Stop: 12/06/17 20:34 Last Infusion: 12/06/17 21:47 Dose: 0 mls/hr Admin: 12/06/17 19:54 Dose: 1,000 mls/hr Lorazepam (Ativan) 0.5 mg IV NOW ONE Stop: 12/06/17 18:35 Last Admin: 12/06/17 19:06 Dose: 0.5 mg Ondansetron HCl (Zofran) 4 mg IV NOW ONE Stop: 12/06/17 17:54 Last Admin: 12/06/17 18:14 Dose: 4 mg Ondansetron HCl (Zofran) 4 mg IV NOW ONE Stop: 12/06/17 19:10 Last Admin: 12/06/17 19:10 Dose: 4 mg Reevaluation(s) Reevaluation #1: Patient pain and vomiting improved after ativan and dilaudid. Time: 19:32 Reevaluation #2: Patient feeling better, able to give urine. Plan to finish 2nd liter of fluids, reviewed labs and imaging including changes at gallbladder region, renal cysts and thickening of duodenum. Discussed need for follow up and return if worsening. No clear signs of infection at this time. Time: 20:19 Reevaluation #3: Patient has not had any more emesis. Appears much more comfortable. We also discussed she was likely having some withdrawl symptoms from being unable to take her home pain meds. She also has not been able to keep down her BP meds. She has zofran 8mg at home. Time: 21:45 Vital Signs - 8 hr 12/06/17 17:27 12/06/17 21:20 Temperature 97.7 F Pulse Rate 96 H 97 H Respiratory Rate 19 20 Blood Pressure 192/115 H Blood Pressure [Right Arm] 158/100 H Pulse Oximetry 99 98 MDM - Nausea/Vomiting/Diarrhea Lab Data Attestation: I reviewed the patient's lab results. Result diagrams: 12/06/17 18:06 12/06/17 18:06 Lab Results 12/06/17 12/06/17 12/06/17 Range/Units 18:06 18:06 19:10 WBC 12.1 H (4.5-11.0) X10^3/uL RBC 4.82 (4.0-5.2) X10^6/uL Hgb 14.3 (12.0-16.0) g/dL Hct 42.8 (36-46) % MCV 89.0 (80-100) fL MCH 29.8 (26-34) PG MCHC 33.5 (30-36) % RDW 14.1 (11.6-14.8) % Plt Count 626 H (150-400) X10^3/uL Neut % (Auto) 82.2 H (50-75) % Lymph % (Auto) 11.1 L (25-40) % [place] % (Auto) 5.5 (3-14) % Eos % (Auto) 0.2 L (2-4) % Baso % (Auto) 1.0 (0-2) % Neut # (Auto) 37790 H (4356-8517) /uL Sodium 141 (137-145) mmol/L Potassium 3.9 (3.4-5.1) mmol/L Chloride 93 L (98-107) mmol/L Carbon Dioxide 31 (22-32) mmol/L BUN 15 (7-17) mg/dL Creatinine 1.10 H (0.52-1.04) mg/dL Estimated GFR 50.0 L (>60) mL/min BUN/Creatinine Ratio 13.6 (6-22) Glucose 177 H (80-110) mg/dL Lactate 1.3 (0.7-2.1) mmol/L Calcium 10.7 H (8.4-10.2) mg/dL Total Bilirubin 0.7 (0.2-1.3) mg/dL AST 21 (14-36) IU/L ALT 27 (9-52) IU/L Alkaline Phosphatase 80 (38-126) U/L Total Protein 8.5 H (6.3-8.2) g/dL Albumin 5.1 H (3.5-5.0) g/dL Globulin 3.4 (1.7-4.1) g/dL Albumin/Globulin Ratio 1.5 (1.0-2.8) Lipase 330 H (23-300) U/L Urine Dip Bedside Urine Glucose Negative Bedside Urine Bilirubin - Negative Bedside Urine Ketone - Negative Urine Specific Thomas 1.010 Bedside Urine Occult Blood - Negative Bedside Urine pH 8.5 Bedside Urine Protein - Negative Bedside Urine Urobilinogen - Negative Bedside Urine Nitrite - Negative Bedside Urine Leukocytes - Negative Esterase Imaging Data CT scan - abdomen: Attestation: I personally reviewed and interpreted this imaging study as follows: Radiologist's impression: [address] [address] [address] Scan Report Signed Patient: Angelic Don [facility]#: [id number] : 4Acct:[id number] Age/Sex: 62 / FDate of Service: 12/06/17 Loc: ED Accession Number: [id number] Procedure: CT abdomen pelvis w con Ordering Provider: Mariola Dalton D.O. PROCEDURE: CT ABDOMEN PELVIS W CON INDICATIONS: recent cholecystectomy vomiting/abd pain, hx c diff TECHNIQUE: After the administration of intravenous contrast, 5 mm thick sections acquired from the diaphragm to the symphysis. 5 mm coronal and sagittal reformats were acquired. For radiation dose reduction, the following was used: automated exposure control, adjustment of mA and/or kV according to patient size. COMPARISON: Merged With [facility], CT, ABDOMEN W&WO CONTRAST, 10/05/2016, 11:14. Merged With [facility], CT, ABDOMEN/PELVIS WITH CONTRAST, 11/20/2012, 13:39. Outside Film, CT, CT ABDOMEN PELVIS WITH CONTRAST, 07/02/2017, 14:13. Merged With [facility], CT, CT ABDOMEN WO/W CON, 08/15/2017, 12:54. FINDINGS: Image quality: Excellent. ABDOMEN: Lung bases: Lung bases are clear. Heart size is normal. Solid organs: Liver is enlarged steatosis. Gallbladder has been removed. There is minimal stranding and fluid along the inferior aspect of the gallbladder fossa.. Biliary system is non dilated. Pancreas enhances normally. Spleen is normal in size and enhancement. No adrenal nodules. Kidneys demonstrate normal size and enhancement, without hydronephrosis. Renal cysts are again noted. Peritoneum and bowel: Bowel loops are nonobstructed. Colonic diverticula are present without associated inflammatory change. There is marked thickening of the duodenal C-loop which has not appreciably changed. No free fluid or air. Nodes and vessels: No retroperitoneal or mesenteric adenopathy by size criteria. Aorta and inferior vena cava are normal in size. Miscellaneous: Fat containing ventral hernia is present. PELVIS: Genitourinary: Bladder wall thickness is normal. Miscellaneous: No inguinal hernias or adenopathy. Bones: No suspicious bony lesions. No vertebral body compression fractures. Lumbar posterior fixation is present. IMPRESSION: 1. Cholecystectomy with minimal stranding and fluid along the inferior aspect of the gallbladder fossa, extending to an adjacent loop of ascending colon. This is suspected to be related to postcholecystectomy changes. No defined focal fluid collection is present. Recommend short interval imaging followup if symptoms persist. 2. Persistent marked thickening of the duodenal C-loop as above. Etiology of this is uncertain but appears to be not related to incomplete distention. Further evaluation with upper GI or endoscopy is recommended to exclude mass lesion. Dictated by: Tootie Shi M.D. on 12/06/2017 at 19:59 Approved by: Tootie Shi M.D. on 12/06/2017 at 20:05 [facility] Narrative Medical decision making narrative: Patient's lab work shows a slight elevation of her white count, she also has a slightly elevated lipase at 3:30 a.m. but has been actively vomiting and is just over the normal range. The rest of her labs do not show any clear signs of dehydration although we discussed that her renal function / creatinine was 1.1 which is slightly elevated from her normal baseline. Her BUN was not elevated today nor did she have other electrolyte abnormalities. Urine did not show any signs of infection. CT showed some stranding and changes adjacent to the gallbladder region that could be postoperative and I suspect most likely are. There is also thickening of the duodenum which we discussed and that she needs follow-up an EGD in the future for further evaluation. We also discussed that her renal cysts are still present. She has had multiple episodes of C diff in the past she was unable to give a stool sample here in the ED was given specimen cups for follow-up. She has a follow-up appointment with [facility] for fecal transplant. BP although elevated has improved during her stay, she was unable to take her regular blood pressure medications or pain medications secondary to emesis which will likely improve when she is able to take these medications. She has Zofran at home, she was given a couple tablets of Dilaudid for breakthrough pain although she has been taking oxycodone regularly for many years. Patient and are both at bedside feel comfortable returning she appears much improved after fluids and pain medication. Discharge Plan Departure Patient Disposition: Home Clinical Impression: Vomiting, Hx of cholecystectomy Discharge Date/Time: 12/06/17 21:48 Interventions: ED Discharge Assessment Last Done: 12/06/17 21:48 Instructions: DI for Vomiting -- Adult Activity Restrictions/Additional Instructions: Return to the emergency department if her symptoms are improving over the weekend if he continued to have vomiting. If you're having fevers greater than 100.4, new or increasing abdominal pain, black or bloody stools, worsening diarrhea or other new or concerning symptoms. Call Saturday morning for follow-up with General surgery. Continue your home medications as prescribed including your Zofran. Take pain medication as prescribed this medication can make you sleepy do not drive, perform hazards activities or make any major decisions while taking it. Your imaging shows thickening of the duodenum, cause of this is unclear but further evaluation with upper GI or endoscopy is recommended in the future. Prescriptions: New hydromorphone [Dilaudid] 2 mg tablet 2 mg PO Q6H PRN (Reason: pain) Qty: 5 RF: 0 No Action simvastatin 40 MG tablet 40 mg PO Q DAY Qty: 0 RF: 0 glipizide 5 mg tablet 1 tab PO DAILY RF: 0 oxycodone 5 mg tablet 1 tab PO QID MDD pain, severe RF: 0 Ambien 1 tab PO BEDTIME PRN (Reason: Sleep) RF: 0 ondansetron 8 mg tablet,disintegrating 8 mg PO TID PRN (Reason: Nausea And Vomiting) RF: 0 telmisartan 40 mg tablet 40 mg PO DAILY RF: 0 Probiotic 1 cap PO DAILY RF: 0 carvedilol 12.5 mg tablet 1 tab PO BID RF: 0 hydralazine 25 mg tablet 1 tab PO TID RF: 0 oxycodone 5 mg tablet RF: 0 Referrals: Jerry Taylor MD [Primary Care Provider] - Shaun Sandy MD [Physician] -
[2017-12-06 18:45] LABS: Alanine Aminotransferase 27 IU/L (9-52); Albumin 5.1 g/dL (3.5-5.0); Albumin Globulin Ratio 1.5 (1.0-2.8); Alkaline Phosphatase 80 U/L (38-126); Aspartate Aminotransferase 21 IU/L (14-36); BUN Creatinine Ratio 13.6 (6-22); Bilirubin Total 0.7 mg/dL (0.2-1.3); Blood Urea Nitrogen 15 mg/dL (7-17); Calcium 10.7 mg/dL (8.4-10.2); Carbon Dioxide 31 mmol/L (22-32); Chloride 93 mmol/L (98-107); Globulin 3.4 g/dL (1.7-4.1); Glucose 177 mg/dL (80-110); HEMOLYSIS < 15 (0-50); Lipase 330 U/L (23-300); Potassium 3.9 mmol/L (3.4-5.1); Sodium 141 mmol/L (137-145); Total Protein 8.5 g/dL (6.3-8.2)
[2017-12-06] MEDS: HYDROMORPHONE 1 MG INJ IV (19:06)
[2017-12-06] MEDS: LORazepam 2 MG/ML SYRINGE 0.5 MG IV (19:06)
[2017-12-06 19:33] LABS: Lactate (Lactic Acid) 1.3 mmol/L (0.7-2.1)
[2017-12-06 21:20] VITALS: BP 158/100; PULSE 97; RESP 20; O2SAT 98
== END 2017-12-06 21:48 | disposition home or self-care (01) ==
PROVIDERS: Internal Medicine; Emergency Provider Emergency Medicine; PCP Internal Medicine
DX: R11.10 Vomiting, unspecified (principal); Z90.49 Acquired absence of other specified parts of digestive tract
CPT/HCPCS: 36415; 36591; 74177; 80053; 81003; 83605; 83690; 85025; 87040; 96361; 96374; 96375; 96376; 99283; 99285; J1170; J2060; J2405; Q9967

== ENCOUNTER → 2018-03-21 13:25 | Outpatient (CLI) | payer MEDICARE, OTHER, SELFPAY ==
[2017-11-16 01:03] VITALS: BMI 32.4
== END ==
PROVIDERS: PCP Internal Medicine; Visit Provider Internal Medicine
DX: Z13.820 Encounter for screening for osteoporosis (principal); M85.852 Other specified disorders of bone density and structure, left thigh; Z78.0 Asymptomatic menopausal state; F17.200 Nicotine dependence, unspecified, uncomplicated
CPT/HCPCS: 77080; 77081

== ENCOUNTER 2018-05-21 13:26 | Day surgery (SDC) | payer MEDICARE, OTHER, SELFPAY ==
[2017-11-16 01:03] VITALS: BMI 32.4
[2018-05-21] VITALS (9 sets, daily range): BP systolic 113–177; BP diastolic 72–95; PULSE 64–82; RESP 10–19; TEMP 36.6–36.9; O2SAT 97–100; BMI 32.1
--- NOTE | 2018-05-21 | PATH_ITS ---
[facility] Accession Number: [id number] . 01 Material submitted: . PART A: GASTRIC BIOPSIES PART B: GE JUNCTION BIOPSIES PART C: TRANSVERSE COLON POLYP PART D: SIGMOID POLYP . 01 Clinical history: . A: R/O H. PYLORI B: R/O BARRETTS . 02 Diagnosis: A. Gastric Biopsies: Mucosal hyperemia without associated significant inflammation involving antral and fundic mucosa. Negative for evidence of Helicobacter on H/E stain. Negative for intestinal metaplasia. Negative for dysplasia and malignancy. . B. Gastroesophageal Junction, Biopsies: Squamocolumnar junction mucosa negative for specialized metaplasia of Fry's type esophagus. Negative for dysplasia and malignancy. Negative for squamous intraepithelial eosinophils. . C. Transverse Colon Polyp: Tubular adenoma. . D. Sigmoid Colon Polyp: Single polypoid-shaped fragment of colon mucosa associated with mucosal polypoid redundancy. Negative for evidence of neoplasm and/or hyperplasia on multiple histologic sections. . MR/05/23/2018 . 02 Electronically signed: . Gaetano De La Vega MD, Pathologist NPI- [id number] . 01 Gross description: . Part A: GASTRIC BIOPSIES: Received in formalin are multiple fragment(s) of bond, soft tissue measuring 0.5 x 0.5 x 0.3 cm in aggregate submitted entirely in 1 cassette(s) Part B: GE JUNCTION BIOPSIES: Received in formalin are 3 fragment(s) of bond, soft tissue measuring 0.3 x 0.3 x 0.2 cm to 0.2 x 0.1 x 0.1 cm submitted entirely in 1 cassette(s) Part C: TRANSVERSE COLON POLYP: Received in formalin is 1 fragment(s) of bond, soft tissue measuring 0.5 x 0.3 x 0.2 cm submitted entirely in 1 cassette(s) Part D: SIGMOID POLYP: Received in formalin is 1 fragment(s) of bond, soft tissue measuring 0.5 x 0.4 x 0.4 cm submitted entirely in 1 cassette(s) /CKI /CKI . 02 Pathologist provided ICD-10: D12.3 . 02 CPT . 023261, [id number], 759811, [id number] Performed at: 01 [facility] [address] [place] [address], [place], [place] [id number] MD Jabier Wilson MD Phone: [phone] Performed at: 02 [facility] [address] [place], [place] [id number] MD Alyssa Jackman MD Phone: [phone]
--- NOTE | 2018-05-21 15:37 | PM.PREOP ---
Pre-operative Note Interval Note History & Physical reviewed/Exam performed by Physician: Yes Changes to H&P: No H&P completed within 30 days and has changed as indicated here:: none ASA Class (for procedural sedation): II
[2018-05-21] MEDS: SODIUM CHLORIDE 0.9% 1,000 ML 200 ML IV (15:51)
--- NOTE | 2018-05-21 16:00 | PM.HP.1 ---
History of Present Illness Chief complaint: [id number] Patient History Medical History Diabetes (Acute) C. difficile colitis (Chronic) HLD (hyperlipidemia) (Chronic) HTN (hypertension) (Chronic) Pancreatitis (Resolved) Surgical History S/P laparoscopic cholecystectomy (Acute) Social History household members: spouse Smoking Status: Current every day smoker Family & Social History Social History: household members spouse Tobacco & Substance use: Smoking Status Current every day smoker alcohol intake frequency 0-2 drinks per day Substance Use Type does not use Meds Home Medications Medication Instructions Recorded Confirmed Type simvastatin 40 mg PO Q DAY #0 03/29/16 12/06/17 History Ambien 1 tab PO BEDTIME PRN 11/15/17 11/15/17 History Probiotic 1 cap PO DAILY 11/15/17 11/15/17 History glipizide 1 tab PO DAILY 11/15/17 12/06/17 History ondansetron 8 mg PO TID PRN 11/15/17 12/06/17 History oxycodone 1 tab PO QID MDD pain, severe 11/15/17 12/06/17 History telmisartan 40 mg PO DAILY 11/15/17 11/15/17 History hydralazine 1 tab PO TID 12/06/17 12/06/17 History oxycodone 12/06/17 History telmisartan [Micardis] 40 mg PO DAILY 05/21/18 05/21/18 History Allergies Allergy/AdvReac Type Severity Reaction Status Date / Time Opioids - Morphine Analogues Allergy Intermediate Nausea Verified 05/21/18 15:18 [OPIOIDS - MORPHINE ANALOGUES] adhesive tape [ADHESIVE TAPE] Allergy Mild blisters Verified 05/21/18 15:18 Review of Systems Review of Systems All systems reviewed & are unremarkable except as noted in HPI and below Exam Vital Signs (past 8 hours): Oxygen Delivery Method Room Air Narrative Exam Narrative: Awake alert oriented x3, pupils reactive, lungs clear, heart regular rhythm, abdomen nondistended, extremities without edema Assessment & Plan Assessment & Plan narrative: dyspepsia, GERD, Colon cancer screening, EGD, colonoscopy
--- NOTE | 2018-05-21 16:42 | PM.OP.ENDO ---
Operative Date/Time/Diagnoses Date of procedure: 05/21/18 Procedure & Clinicians Study performed: EGD with biopsy Monitored anesthesia care Indications: Dyspepsia, epigastric pain, history of peptic ulcer disease Procedure Notes Procedure in detail: Prior to the procedure, history and physical was performed, and patient medications and allergies were reviewed. Preprocedure nursing history and assessment was reviewed. Patient identification and proposed procedure were verified by the physician and nurse in the procedure room. The physical status of the patient was reassessed after the procedure. After informed consent was obtained including risks, benefits, and alternatives, the scope was passed under direct vision. Throughout the procedure, the patient's blood pressure, pulse, and oxygen saturations were monitored continuously. The upper endoscope was introduced through the mouth and advanced to the 2nd portion of the duodenum. Retroflexion was performed in the stomach. The patient tolerated the procedure well. The esophagus was normal appearing except for 1 tongue of salmon-colored mucosa extending 1 cm above the gastroesophageal junction. This was biopsied to rule out Fry's esophagus. The entire stomach was normal appearing. Biopsies taken to rule out H pylori The entire examined duodenum was normal appearing Impression: Irregular Z-line, biopsied to rule out Fry's esophagus Normal appearing stomach Normal appearing duodenum Complications: other (EBL minimal. No complications) Plan for aftercare: Recommendations: Follow-up pathology results Proceed with colonoscopy today
--- NOTE | 2018-05-21 16:45 | PM.OP.ENDO ---
Operative Date/Time/Diagnoses Date of procedure: 05/21/18 Procedure & Clinicians Study performed: Colonoscopy with biopsy Monitored anesthesia care Indications: Colon cancer screening. Last colonoscopy was in 2004 Procedure Notes Procedure in detail: Prior to the procedure, history and physical was performed, and patient medications and allergies were reviewed. Preprocedure nursing history and assessment was reviewed. Patient identification and proposed procedure were verified by the physician and nurse in the procedure room. The physical status of the patient was reassessed after the procedure. After informed consent was obtained including risks, benefits, and alternatives, the scope was passed under direct vision. Throughout the procedure, the patient's blood pressure, pulse, and oxygen saturations were monitored continuously. The colonoscope was introduced through the anus and advanced to the cecum as identified by the appendiceal orifice and ileocecal valve. The patient tolerated the procedure well. Bowel prep was deemed adequate to detect polyps greater than 5 mm. FAIZAN and perianal examinations were unremarkable. Retroflexion in the rectum revealed grade 2 internal hemorrhoids. Multiple small and medium mouth diverticula were noted in the sigmoid colon Two 3 mm sessile polyps were noted in the sigmoid colon and transverse colon, respectively. These were removed with a Jumbo forceps and retrieved Complications: other (EBL minimal. No complications) Plan for aftercare: Recommendations: Follow-up pathology results Repeat colonoscopy at a date to be determined based on pathology results Resume home medications High fiber diet Discharge home with escort
--- NOTE | 2018-05-21 17:29 | SUR.PHASEI ---
[id number] To PACU, dozing, arouses easily, skin warm and dry, resp even and regular. Declined PO intake repeatedly. Became increasinly more aware of surroundings. Reported abdominal bloating/discomfort prior to transfer to phase II. Dr Blount notified of increasing blood pressure (showed her the VS strip) and c/o gas discomfort, distention. No orders received. Haris Rosas RN took patient to OPD upon which time it was recommended to lower the head and raise the foot of the bed to see if this could help the patient facilitate passing flatus.
== END 2018-05-21 17:50 | disposition home or self-care (01) ==
PROVIDERS: PCP Internal Medicine; Visit Provider Internal Medicine
PROC: 0DJ08ZZ Inspection of Upper Intestinal Tract, Via Natural or Artificial Opening Endoscopic (ICD-10-PCS; CPT 43235; principal; 2018-05-21 15:00)
PROC: 0DJD8ZZ Inspection of Lower Intestinal Tract, Via Natural or Artificial Opening Endoscopic (ICD-10-PCS; CPT 45378; 2018-05-21 15:00)
DX: Z12.11 Encounter for screening for malignant neoplasm of colon (principal); K30 Functional dyspepsia; K64.1 Second degree hemorrhoids; Z87.19 Personal history of other diseases of the digestive system; I10 Essential (primary) hypertension; G89.4 Chronic pain syndrome; D12.3 Benign neoplasm of transverse colon
CPT/HCPCS: 45380; 88305; J2250; J2405; J2704; J3010

== ENCOUNTER → 2018-09-23 20:49 | Outpatient (CLI) | payer MEDICARE, OTHER, SELFPAY ==
[2017-11-16 01:03] VITALS: BMI 32.4
[2018-09-23 21:19] LABS: BUN Creatinine Ratio 15.5 (6-22); Blood Urea Nitrogen 17 mg/dL (7-17); Estimated Glomerular Filt Rate 49.8 mL/min (>60)
== END ==
PROVIDERS: Family Provider Internal Medicine; PCP Internal Medicine; Visit Provider Urology
DX: N28.89 Other specified disorders of kidney and ureter (principal)
CPT/HCPCS: 36415; 82565; 84520

== ENCOUNTER → 2018-09-26 11:18 | Outpatient (CLI) | payer MEDICARE, OTHER, SELFPAY ==
[2017-11-16 01:03] VITALS: BMI 32.4
--- NOTE | 2018-09-26 | DI.CT.S_ITS ---
PROCEDURE: CT ABDOMEN WO/W CON INDICATIONS: RENAL MASS TECHNIQUE: Optional 5 mm thick noncontrast images acquired from the diaphragm to the iliac crests. After the administration of intravenous contrast, 5 mm thick images again acquired from the diaphragm to the iliac crests in the arterial and urographic phases. 5 mm thick coronal and sagittal reformats were then acquired. For radiation dose reduction, the following was used: automated exposure control, adjustment of mA and/or kV according to patient size. COMPARISON: [facility], CT, ABDOMEN W&WO CONTRAST, 10/05/2016, 11:14. [facility], CT, CT ABDOMEN PELVIS W CON, 12/06/2017, 18:54. [facility], CT, CT ABDOMEN WO/W CON, 08/15/2017, 12:54. FINDINGS: Image quality: Excellent. Lung bases: Lung bases are clear. Heart size is normal. Genitourinary: The kidneys demonstrate overall symmetric size and enhancement. Fat stranding is present in the surgical bed within the right upper lobe which has an unchanged appearance when compared with the CT dated 08/15/17. No findings to suggest tumor recurrence. A low-density cystic lesion is present at the upper pole the right kidney and a low density exophytic cyst is present off the lower pole the left kidney. A subcentimeter cortical cyst is also present within the upper pole the left kidney which is unchanged from prior studies. No new suspicious enhancing mass lesions. No hydronephrosis. Blunt-2 mm punctate nonobstructing calculi are present within the left renal collecting system. No right nephrolithiasis. No hydroureter or ureterolithiasis where visualized. Other solid organs: Liver is normal in size and is hypodense suggesting fatty infiltration. Focal fat is present at the falciform ligament. Gallbladder is surgically absent. Biliary system is non dilated. Pancreas enhances normally. Spleen is normal in size and enhancement. No adrenal nodules. Peritoneum and bowel: Unenhanced bowel loops are normal in wall thickness and caliber. No free fluid or air. Nodes and vessels: No retroperitoneal or mesenteric adenopathy by size criteria. Aorta and inferior vena cava are normal in caliber. Bones: No suspicious bony lesions. No vertebral body compression fractures. Posterior fixation hardware is grossly intact. Miscellaneous: No ventral hernias. IMPRESSION: 1. No findings to suggest tumor recurrence at the upper pole of the right kidney. 2. Stable bilateral simple renal cysts. 3. Left nephrolithiasis. No hydronephrosis, hydroureter, or ureterolithiasis where visualized. Dictated by: Citlalli Looney M.D. on 09/26/2018 at 14:44 Approved by: Citlalli Looney M.D. on 09/26/2018 at 14:58
== END ==
PROVIDERS: Family Provider Internal Medicine; PCP Internal Medicine; Visit Provider Urology
DX: N28.1 Cyst of kidney, acquired (principal); N20.0 Calculus of kidney; N28.89 Other specified disorders of kidney and ureter
CPT/HCPCS: 74170; Q9967

== ENCOUNTER → 2018-11-24 12:54 | Outpatient (CLI) | payer MEDICARE, OTHER, SELFPAY ==
[2017-11-16 01:03] VITALS: BMI 32.4
--- NOTE | 2018-11-24 | DI.US.S_ITS ---
PROCEDURE: US THYROID INDICATIONS: NONTOXIC SINGLE THYROID NODULE TECHNIQUE: Real-time scanning was performed of the thyroid gland, with image documentation. COMPARISON: None. FINDINGS: Right: Thyroid lobe measures 5.4 x 2.3 x 2.2 cm, and is homogeneous in echotexture. Left: Thyroid lobe measures 5.1 x 1.7 x 1.6 cm, and is homogenous in echotexture. Isthmus: 5 mm thick. Multiple thyroid nodules. Nodule number: 1. subcentimeter. Nodule number: 2 Location: Right mid Size: 2.2 x 2 x 1.9 cm. Composition: Predominately solid Echogenicity: Isoechoic Shape: Wider than tall Margins: Smooth, halo Echogenic foci: Punctate Total points: 5 ACR TI-RADS category: 4 Nodule number: 3 Location: Right mid/inferior lateral Size: 1.2 x 0.8 x 0.7 cm. Composition: Solid Echogenicity: Marked hypoechoic Shape: Wider than tall Margins: Irregular Echogenic foci: None Total points: 7 ACR TI-RADS category: 5 Nodule number: 4 Location: Left inferior medial Size: 0.6 x 0.4 x 0.5 cm. Composition: Solid Echogenicity: Hypoechoic Shape: Wider than tall Margins: Smooth Echogenic foci: None Total points: 4 ACR TI-RADS category: 4 IMPRESSION: 1. Right mid/inferior lateral nodule (#3) measuring 1.2 cm. TI-RADS 5. FNA is recommended. 2. Right mid nodule (#2) measuring 2.2 cm. TI-RADS 4. FNA is recommended. ACR TI-RADS definitions and recommendations: TI-RADS 1 (benign): 0 points. FNA not needed. TI-RADS 2 (not suspicious): 2 points. FNA not needed. TI-RADS 3 (mildly suspicious): 3 points. * FNA if 2.5 cm or larger, follow up if 1.5 cm or larger (at 1, 3, and 5 years). TI-RADS 4 (moderately suspicious): 4-6 points. * FNA if 1.5 cm or larger, follow up if 1 cm or larger (at 1, 2, 3, and 5 years). TI-RADS 5 (highly suspicious): 7 points or more. * FNA if 1 cm or larger, follow up if 0.5 cm or larger (every year for 5 years). Dictated by: Clifton Klein M.D. on 11/24/2018 at 16:48 Approved by: Clifton Klein M.D. on 11/24/2018 at 16:56
== END ==
PROVIDERS: PCP Internal Medicine; Visit Provider Internal Medicine
DX: E04.2 Nontoxic multinodular goiter (principal)
CPT/HCPCS: 76536

== ENCOUNTER → 2018-12-19 12:49 | Outpatient (CLI) | payer MEDICARE, OTHER, SELFPAY ==
[2017-11-16 01:03] VITALS: BMI 32.4
--- NOTE | 2018-12-19 | DI.MG.S_ITS ---
BILATERAL DIGITAL SCREENING MAMMOGRAM 3D/2D WITH CAD: 12/19/2018 CLINICAL: Routine screening. Comparison is made to exams dated: 07/19/2011 mammogram, 03/22/2010 mammogram, and 02/01/2009 mammogram - [facility]. The tissue of both breasts is heterogeneously dense. This may lower the sensitivity of mammography. Current study was also evaluated with a Computer Aided Detection (CAD) system. There are benign vascular calcifications in the right breast. There are mole markers on both breasts. There is a linear scar marker overlying the left breast. No significant masses, calcifications, or other findings are seen in either breast. There has been no significant interval change. IMPRESSION: There is no mammographic evidence of malignancy. A 1 year screening mammogram is recommended. This exam was interpreted at Station ID: [id number]. NOTE: For mammograms, a report in lay terms will be sent to the patient. Approximately 15% of breast malignancies will not be visualized mammographically. In the management of a palpable breast mass, a negative mammogram must not discourage biopsy of a clinically suspicious lesion. Electronically Signed By: Wilfrid Krueger M.D. ecl/:12/21/2018 21:38:00 letter sent: Normal Exam ACR BI-RADS Category 2: Benign Finding(s) [id number]
== END ==
PROVIDERS: PCP Internal Medicine; Visit Provider Internal Medicine
DX: Z12.31 Encounter for screening mammogram for malignant neoplasm of breast (principal)
CPT/HCPCS: 77063; 77067

== ENCOUNTER → 2018-12-24 09:14 | Outpatient (CLI) | payer MEDICARE, OTHER, SELFPAY ==
[2017-11-16 01:03] VITALS: BMI 32.4
--- NOTE | 2018-12-24 | PATH_ITS ---
Note [facility] Accession Number: [id number] TESTS RESULT FLAG UNITS REF RANGE LAB Clinician Provided Cytology Information No. of containers..01 ThinPrep Vial No. of containers..16 Previously Prepared Cytology Slide MID/INF THYROID NODULE DIAGNOSIS: MID/INF THYROID NODULE NEGATIVE FOR MALIGNANT CELLS. [place] CATEGORY II. SPECIMEN CONSISTS OF BENIGN FOLLICULAR CELLS, HEMOSIDERIN-LADEN MACROPHAGES, COLLOID, AND BLOOD. THIS PATTERN IS CONSISTENT WITH A COLLOID NODULE. Pathologist ICD10: 02 E04.1 02 Yarelis Topete MD, Pathologist NPI- [id number] Nita Bean, Conference Assistant ([facility]) 01 30 CC, COLORLESS, CLEAR RECEIVED: 8 ALCOHOL FIXED AND 8 QUICK STAINED SLIDES WITH 1 RNA VIAL FOR FURTHER TESTING. /VDU 12/25/2018 0718 Local FLAG LEGEND: L-Low Normal,H-High Normal,LL-Alert Low,HH-Alert High <-Panic Low,>-Panic High,A-Abnormal,AA-Critical Abnormal Performed at: 01 =Z [facility] [address], [place] [address] Jabier Wilson MD, 02 [facility] [address] [place] [id number] Alyssa Jackman MD, Performed at: 01 [facility] [address], [place], [place] [id number] MD Jabier Wilson MD Phone: [phone]
--- NOTE | 2018-12-24 | DI.US.S_ITS ---
PROCEDURE: US FINE NEEDLE ASPIRATION INDICATIONS: RIGHT THYROID NODULES X 2 TECHNIQUE: The indications, alternatives, benefits, risks, and complications of the procedure were explained to the patient. Written informed consent was obtained and placed in the chart. The thyroid region was examined sonographically and a site was chosen for ultrasound guided percutaneous sampling. The skin was prepared and draped in the usual fashion, and anesthetized with 1% lidocaine infiltrated from the skin down to the thyroid gland. Multiple passes were then performed, with contents emptied into an appropriate pathology specimen container. A bandage was applied to the area of access at completion of the study. COMPARISON: [facility], US, US THYROID, 11/24/2018, 13:11. FINDINGS: Location(s) of lesion(s) sampled: The first nodule sampled was an approximately 2.0 cm right thyroid nodule in the mid to inferior right thyroid gland, corresponding to the nodule labeled nodule #2 on comparison thyroid ultrasound of 11/24/18. A second nodule sampled was an approximately 1.2 cm thyroid nodule in the mid to inferior right thyroid gland, corresponding to the nodule labeled nodule #3 on comparison thyroid ultrasound 11/24/18. [place]: 10 25-gauge hypodermic needles, 4 22-gauge hypodermic needles. Number of passes: The first nodule sampled was sampled with 5 25-gauge hypodermic needles. The second nodule sampled was sampled with 5 25-gauge hypodermic needles and 4 22-gauge hypodermic needles. Medications: Approximately 15 cc of 1% lidocaine for local anaesthesia. Complications: None. Patient reports no complaints post procedure, and specifically denies any difficulty breathing, neck pain, or difficulty swallowing post procedure. On-site husbandry technician confirmed adequate sample prior to procedure termination. IMPRESSION: Successful ultrasound-guided fine needle aspiration of 2 right thyroid nodules as described on comparison thyroid ultrasound of 11/24/18, with cytology results pending. Please see chart below for management recommendations based on cytology results. Green System ReportingRecommendationsNon-diagnostic* Repeat US-guided FNA, with on-site cytology evaluation if possible. * Repeated non-diagnostic nodules without high suspicion US features: close observation vs surgical consult. * Consider surgery if nodule has high suspicion US features, grows >20% in 2 dimensions on followup, or patient has clinical risk factors for malignancy. Benign* If nodule has high suspicion US features: repeat US and FNA within 12 months. * If nodule has low to intermediate suspicion US features: repeat US at 12-24 months. If nodule grows (20% increase in at least 2 dimensions, with minimal increase of 2 mm or >50% change in volume), or development of new suspicious US features, then repeat FNA or continue followup. * If nodule has very low suspicion US features: followup US at >24 months. Atypia of undetermined significance, follicular lesion of undetermined significanceRepeat FNA, molecular testing, followup US, or surgical consult.Follicular neoplasm, suspicious for follicular neoplasmSurgical consult; also consider molecular testing. Suspicious for malignancySurgical consult.MalignantSurgical consult. Dictated by: Wilfrid Krueger M.D. on 12/24/2018 at 13:34 Approved by: Wilfrid Krueger M.D. on 12/24/2018 at 13:42
--- NOTE | 2018-12-24 | PATH_ITS ---
Note [facility] Accession Number: [id number] TESTS RESULT FLAG UNITS REF RANGE LAB Clinician Provided Cytology Information No. of containers..01 ThinPrep Vial No. of containers..08 Previously Prepared Cytology Slide RIGHT INFERIOR THYROID NODULE DIAGNOSIS: 02 RIGHT INFERIOR THYROID NODULE NEGATIVE FOR MALIGNANT CELLS. FOLLICULAR CELLS, MACROPHAGES, AND COLLOID ARE PRESENT, CONSISTENT WITH A BENIGN FOLLICULAR NODULE. Pathologist ICD10: 02 E04.1 02 Yarelis Topete MD, Pathologist NPI- [id number] Michael Verma, Management [employer]ession[employer] ([facility]) 01 30 CC, RED, CLEAR RECEIVED: 4 ALCOHOL FIXED AND 4 QUICK STAINED SLIDES WITH 1 RNA VIAL FOR FURTHER TESTING. /VDU 12/25/2018 0727 Local FLAG LEGEND: L-Low Normal,H-High Normal,LL-Alert Low,HH-Alert High <-Panic Low,>-Panic High,A-Abnormal,AA-Critical Abnormal Performed at: 01 =Z [facility] [address], [place] [address] Jabier Wilson MD, 02 [facility] [address] [place] [id number] Alyssa Jackman MD, Performed at: 01 [facility] [address], [place], [place] [id number] MD Jabier Wilson MD Phone: [phone]
== END ==
PROVIDERS: PCP Internal Medicine; Visit Provider Internal Medicine
DX: E04.2 Nontoxic multinodular goiter (principal)
CPT/HCPCS: 10005

== ENCOUNTER → 2019-12-31 14:18 | Outpatient (CLI) | payer MEDICARE, OTHER, SELFPAY ==
[2017-11-16 01:03] VITALS: BMI 32.4
--- NOTE | 2019-12-31 14:21 | DI.US.S_ITS ---
PROCEDURE: US RENAL COMPLETE INDICATIONS: Malignant neoplasm of unspecified kidney TECHNIQUE: Real-time scanning was performed of the kidneys and bladder, with image documentation. COMPARISON: [facility], CT, CT ABDOMEN WO/W EWA, 09/26/2018, 11:32. FINDINGS: Kidneys: Kidneys are normal in size. Right kidney measures 9.9 cm long; left kidney measures 1.1 cm long. Right renal cortical thickness is 10.8 cm; left renal cortical thickness is 1.4 cm. Renal cortical echotexture is normal. No hydronephrosis or nephrolithiasis. No suspicious solid mass lesions. Left renal cortical cyst redemonstrated measuring 2.9 cm. Bladder: Pre-void bladder volume is 468 mL. Post-void residual is 5.4 mL. Pre-void images demonstrate no intraluminal masses or stones. On pre-void images, bilateral ureteral jets are noted with color Doppler interrogation. (Of note, ureteral jets may not be detectable in up to 25% of cases due to insufficient differences in specific gravity between ureteral and bladder urine). Miscellaneous: No free pelvic fluid. IMPRESSION: 1. No tumoral recurrence involving the right kidney. 2. Exophytic left renal cyst redemonstrated. Dictated by: Darryn PATTERSON Interpreted: Jesus Alvarez MD on 01/01/2020 at 8:41 Approved by: Jesus Alvarez M.D. on 01/01/2020 at 9:02
== END ==
PROVIDERS: PCP Internal Medicine; Referring Provider Urology; Visit Provider Urology
DX: C64.9 Malignant neoplasm of unspecified kidney, except renal pelvis (principal); N28.1 Cyst of kidney, acquired
CPT/HCPCS: 76770

== ENCOUNTER → 2020-02-03 14:38 | Outpatient (ROUT) | payer MEDICARE, OTHER, SELFPAY ==
[2017-11-16 01:03] VITALS: BMI 32.4
[2020-02-03 15:11] LABS: Aspartate Aminotransferase 24 IU/L (14-36); BUN Creatinine Ratio 32.3 (6-22); Blood Urea Nitrogen 31 mg/dL (7-17); Calcium 9.6 mg/dL (8.4-10.2); Carbon Dioxide 30 mmol/L (22-32); Chloride 102 mmol/L (98-107); Cholesterol 185 mg/dL (140-199); Estimated Glomerular Filt Rate 58.1 mL/min (>60); Glucose 199 mg/dL (80-110); HDL Cholesterol 50 mg/dL (40-60); HEMOLYSIS < 15 (0-50); LDL Cholesterol Calculated 86 mg/dL (<100); Potassium 4.3 mmol/L (3.4-5.1); Sodium 137 mmol/L (137-145); Triglycerides 245 mg/dL (35-150)
== END ==
PROVIDERS: PCP Internal Medicine; Visit Provider Internal Medicine
DX: I10 Essential (primary) hypertension (principal); E78.2 Mixed hyperlipidemia
CPT/HCPCS: 80048; 80061; 84450

== ENCOUNTER → 2020-07-27 14:43 | Outpatient (ROUT) | payer MEDICARE, OTHER, SELFPAY ==
[2017-11-16 01:03] VITALS: BMI 32.4
[2020-07-27 15:27] LABS: Blood Urea Nitrogen 27 mg/dL (7-17); Calcium 10.9 mg/dL (8.4-10.2); Carbon Dioxide 23 mmol/L (22-32); Chloride 102 mmol/L (98-107); Estimated Glomerular Filt Rate 52.9 mL/min (>60); Glucose 179 mg/dL (80-110); HEMOLYSIS < 15 (0-50); Potassium 4.5 mmol/L (3.4-5.1); Sodium 135 mmol/L (137-145)
== END ==
PROVIDERS: PCP Internal Medicine; Visit Provider Internal Medicine
DX: I10 Essential (primary) hypertension (principal)
CPT/HCPCS: 80048